=== PATIENT | male | born 1970 | race African-American/Black ===

== ENCOUNTER 2018-10-25 17:59 | Inpatient (IN) | payer MEDICARE, MEDICAID ==
[~2018-10-25] VITALS: Ht 180.3 cm; Wt 60.3 kg
[2018-10-25] MEDS ORDERED: MORPHINE SULFATE 4 MG/ML CPJ (NOT FOR IM USE) IV STA (22:47)
[2018-10-25 23:56] LABS: BASOPHILS % 0.3 % (0.0-2.0); EOSINOPHILS % 2.2 % (0.0-5.0); LYMPHOCYTES % 20.7 % (20.0-50.0); MEAN CORPUSCULAR HEMOGLOBIN 30.3 pg (28.0-32.0); MEAN CORPUSCULAR VOLUME 90.9 fL (80.0-94.0); MEAN PLATELET VOLUME 7.3 fl (7.4-10.4); MONOCYTES % 7.5 % (2.0-8.0); NEUTROPHILS % 69.3 % (40.0-76.0); PLATELET 404 x1000/uL (130-400); RED BLOOD CELL COUNT 3.96 mill/uL (4.7-6.1); RED CELL DISTRIBUTION WIDTH 17.9 % (11.6-14.6)
[2018-10-25 23:57] LABS: CHLORIDE 93 mEq/L (98-107)
[2018-10-26] MEDS ORDERED: CALCIUM CHLORIDE 1GM/10ML SYR IV ONE (00:45)
[2018-10-26] MEDS ORDERED: ALBUTEROL (0.083%) 2.5MG/3ML NEB HHN ONE (00:45)
[2018-10-26] MEDS ORDERED: SODIUM POLYSTYRENE SULFONATE 15 G/60 ML BOT PO ONE (00:45)
[2018-10-26] MEDS ORDERED: SODIUM BICARBONATE 8.4% 1 MEQ/ML 50ML SYR IV ONE (00:45)
[2018-10-26] MEDS ORDERED: MORPHINE SULFATE 4 MG/ML CPJ (NOT FOR IM USE) IV ONE (01:45)
[2018-10-26 09:00] VITALS: BP 144/89
[2018-10-26] MEDS ORDERED: ONDANSETRON HCL 4MG/2ML INJ IV PRN (09:00)
[2018-10-26] MEDS: ENOXAPARIN 30MG/0.3ML SYR SUBCUT SCH (09:30)
[2018-10-26] MEDS: MORPHINE SULFATE 4 MG/ML CPJ (NOT FOR IM USE) IV PRN (11:27)
[2018-10-26 12:05] VITALS: BP 116/55
[2018-10-26 16:12] VITALS: BP 122/84
[2018-10-26 17:39] LABS: BASOPHILS % 0.8 % (0.0-2.0); EOSINOPHILS % 2.7 % (0.0-5.0); HEMATOCRIT. 34.5 % (42.0-52.0); HEMOGLOBIN. 11.4 g/dL (14.0-18.0); LYMPHOCYTES % 18.1 % (20.0-50.0); MEAN CORPUSCULAR HEMOGLOBIN 30.3 pg (28.0-32.0); MEAN CORPUSCULAR VOLUME 91.3 fL (80.0-94.0); MONOCYTES % 7.6 % (2.0-8.0); NEUTROPHILS % 70.8 % (40.0-76.0); PLATELET 415 x1000/uL (130-400); RED BLOOD CELL COUNT 3.78 mill/uL (4.7-6.1); RED CELL DISTRIBUTION WIDTH 17.7 % (11.6-14.6)
[2018-10-26 17:51] LABS: PHOSPHORUS 7.8 mg/dL (2.5-4.9)
[2018-10-26 21:20] VITALS: BP 125/74
[2018-10-26] MEDS: SEVELAMER CARBONATE 800 MG TABLET PO SCH (21:45)
[2018-10-27] VITALS: BP 98/48
[2018-10-27 04:00] VITALS: BP 106/52
[2018-10-27 08:05] VITALS: BP 114/63
[2018-10-27] MEDS: ENOXAPARIN 30MG/0.3ML SYR SUBCUT SCH (09:00)
[2018-10-27] MEDS: SEVELAMER CARBONATE 800 MG TABLET PO SCH ×3 (09:02→17:56)
[2018-10-27] MEDS: FOLIC ACID/VITAMIN B COMP W-C TABLET PO SCH (09:02)
[2018-10-27 10:39] LABS: BASOPHILS % 0.9 % (0.0-2.0); EOSINOPHILS % 1.9 % (0.0-5.0); HEMATOCRIT. 34.4 % (42.0-52.0); HEMOGLOBIN. 11.4 g/dL (14.0-18.0); LYMPHOCYTES % 12.7 % (20.0-50.0); MEAN CORPUSCULAR HEMOGLOBIN 30.4 pg (28.0-32.0); MEAN CORPUSCULAR VOLUME 91.8 fL (80.0-94.0); MEAN PLATELET VOLUME 7.2 fl (7.4-10.4); MONOCYTES % 9.3 % (2.0-8.0); NEUTROPHILS % 75.2 % (40.0-76.0); PLATELET 355 x1000/uL (130-400); RED BLOOD CELL COUNT 3.75 mill/uL (4.7-6.1); RED CELL DISTRIBUTION WIDTH 17.5 % (11.6-14.6)
[2018-10-27] MEDS: MORPHINE SULFATE 4 MG/ML CPJ (NOT FOR IM USE) IV PRN (11:14)
[2018-10-27 12:03] VITALS: BP 116/61
[2018-10-27 12:06] LABS: PHOSPHORUS 6.9 mg/dL (2.5-4.9)
[2018-10-27 16:00] VITALS: BP 109/61
[2018-10-27] MEDS: ACETAMINOPHEN 325MG TABLET PO PRN (17:56)
[2018-10-27 20:00] VITALS: BP 114/66
[2018-10-27] MEDS: CEFTRIAXONE 1 G PREMIX 50 ML IV SCH (20:52)
[2018-10-28] VITALS: BP 114/63
[2018-10-28 04:00] VITALS: BP 103/68
[2018-10-28 07:51] LABS: BASOPHILS % 0.7 % (0.0-2.0); EOSINOPHILS % 2.3 % (0.0-5.0); HEMATOCRIT. 31.9 % (42.0-52.0); HEMOGLOBIN. 10.4 g/dL (14.0-18.0); LYMPHOCYTES % 17.9 % (20.0-50.0); MEAN CORPUSCULAR VOLUME 92.2 fL (80.0-94.0); MEAN PLATELET VOLUME 7.7 fl (7.4-10.4); MONOCYTES % 11.2 % (2.0-8.0); NEUTROPHILS % 67.9 % (40.0-76.0); PLATELET 325 x1000/uL (130-400); RED BLOOD CELL COUNT 3.45 mill/uL (4.7-6.1); RED CELL DISTRIBUTION WIDTH 17.7 % (11.6-14.6)
[2018-10-28 08:00] VITALS: BP 113/67
[2018-10-28] MEDS: SEVELAMER CARBONATE 800 MG TABLET PO SCH ×3 (08:26→19:15)
[2018-10-28] MEDS: FOLIC ACID/VITAMIN B COMP W-C TABLET PO SCH (08:26)
[2018-10-28] MEDS: HYDROCODONE/ACETAMINOPHEN 5/325MG TABLET PO PRN ×2 (08:27→13:20)
[2018-10-28] MEDS: ENOXAPARIN 30MG/0.3ML SYR SUBCUT SCH (09:00)
[2018-10-28 12:00] VITALS: BP 104/48
[2018-10-28 20:00] VITALS: BP 114/68
[2018-10-29] VITALS: BP 96/59
[2018-10-29] MEDS: CEFTRIAXONE 1 G PREMIX 50 ML IV SCH (00:52)
[2018-10-29] MEDS: ACETAMINOPHEN 325MG TABLET PO PRN (01:00)
[2018-10-29 04:00] VITALS: BP 92/50
[2018-10-29 07:47] VITALS: BP 95/63
[2018-10-29] MEDS: FOLIC ACID/VITAMIN B COMP W-C TABLET PO SCH (09:05)
[2018-10-29] MEDS: SEVELAMER CARBONATE 800 MG TABLET PO SCH (09:05)
[2018-10-29 12:42] VITALS: BP 126/79
[2018-10-29 12:45] VITALS: BP 126/79
== END 2018-10-29 13:10 | disposition home or self-care (01) | DRG 640 ==
LOC: ER 17:59 → 6WST 10-26 00:38 → EDBEDREQ 10-26 00:42 → EDBEDREQTM 10-26 00:42 → ENRESERV 10-26 07:06
PROVIDERS: ADMIT Internal Medicine; ATTEND Internal Medicine
PROC: 5A1D70Z Performance of Urinary Filtration, Intermittent, Less than 6 Hours Per Day (ICD-10-PCS; principal; 2018-10-26)
PROC: 5A1D70Z Performance of Urinary Filtration, Intermittent, Less than 6 Hours Per Day (ICD-10-PCS; 2018-10-28)
DX: E87.5 Hyperkalemia (principal); N18.6 End stage renal disease; I13.11 Hypertensive heart and chronic kidney disease without heart failure, with stage 5 chronic kidney disease, or end stage renal disease; E44.0 Moderate protein-calorie malnutrition; N25.81 Secondary hyperparathyroidism of renal origin; Z68.1 Body mass index [BMI] 19.9 or less, adult; N12 Tubulo-interstitial nephritis, not specified as acute or chronic; M19.012 Primary osteoarthritis, left shoulder; N13.9 Obstructive and reflux uropathy, unspecified; D63.8 Anemia in other chronic diseases classified elsewhere; M75.01 Adhesive capsulitis of right shoulder; E89.2 Postprocedural hypoparathyroidism; M85.861 Other specified disorders of bone density and structure, right lower leg; F17.210 Nicotine dependence, cigarettes, uncomplicated; F12.90 Cannabis use, unspecified, uncomplicated; M23.8X1 Other internal derangements of right knee; E87.8 Other disorders of electrolyte and fluid balance, not elsewhere classified; M19.011 Primary osteoarthritis, right shoulder; M1A.9XX1 Chronic gout, unspecified, with tophus (tophi); N25.0 Renal osteodystrophy; Z99.2 Dependence on renal dialysis; Z91.15 Patient's noncompliance with renal dialysis
CPT/HCPCS: 36415; 71045; 73030; 73560; 80048; 83880; 84100; 84484; 93005; 93306; 94644; 96374; 96375; 97161; 97166; 99285; J0696; J1650; J2270; J3490; J7611

== ENCOUNTER 2021-10-18 15:15 | Inpatient (IN) | payer MEDICARE, MEDICAID ==
[~2021-10-18] VITALS: Ht 177.8 cm; Wt 55.4 kg
[~2021-10-18 15:15] MED LIST: CINA60 PO; DOXE2.5C4 PO; LEVO750T46 PO; NEPVIT PO; SEVE800T8 PO
[2021-10-18] MEDS ORDERED: ACETAMINOPHEN 325MG TABLET PO STA (15:35)
[2021-10-18] MEDS ORDERED: SODIUM CHLORIDE 0.9% 500 ML IV ONE (15:45)
[2021-10-18 16:32] LABS: BASOPHILS % 0.7 % (0.0-2.0); EOSINOPHILS % 0.1 % (0.0-5.0); HEMATOCRIT. 43.2 % (42.0-52.0); HEMOGLOBIN. 14.1 g/dL (14.0-18.0); LYMPHOCYTES % 8.2 % (20.0-50.0); MEAN CORPUSCULAR HEMOGLOBIN 29.9 pg (28.0-32.0); MEAN CORPUSCULAR VOLUME 91.4 fL (80.0-94.0); MEAN PLATELET VOLUME 8.8 fl (7.4-10.4); MONOCYTES % 4.7 % (2.0-8.0); NEUTROPHILS % 86.3 % (40.0-76.0); PLATELET 117 x1000/uL (130-400); RED BLOOD CELL COUNT 4.73 mill/uL (4.7-6.1); RED CELL DISTRIBUTION WIDTH 15.2 % (11.6-14.6)
[2021-10-18 16:35] LABS: CHLORIDE 82 mEq/L (98-107)
[2021-10-18 16:39] LABS: INR 1.1; PROTHROMBIN TIME 11.8 sec (9.6-11.0)
[2021-10-18] MEDS ORDERED: MORPHINE SULFATE 4 MG/ML CPJ (NOT FOR IM USE) IV ONE ×2 (17:30→19:00)
[2021-10-18] MEDS ORDERED: PIPERACILLIN/TAZOBACTAM 3.375GM/50ML PREMIX IV STA (19:01)
[2021-10-18] MEDS ORDERED: VANCOMYCIN 1G PREMIX 200 ML IV STA (19:01)
[2021-10-18] MEDS ORDERED: PIPERACILLIN/TAZ 3.375G PREMIX 50 ML IV NR (19:15)
[2021-10-18] MEDS ORDERED: DEXTROSE 50% WATER 50ML SYRINGE IV ONE (20:30)
[2021-10-18] MEDS ORDERED: INSULIN REGULAR (HUMULIN R) 300UNITS/3ML VIAL IV ONE (20:30)
[2021-10-18] MEDS ORDERED: CALCIUM CHLORIDE 1GM/10ML SYR IV ONE (20:30)
[2021-10-18] MEDS ORDERED: ALBUTEROL (0.083%) 2.5MG/3ML NEB HHN ONE (20:30)
[2021-10-18] MEDS ORDERED: DEXTROSE 50% WATER 50ML SYRINGE IV NR (22:15)
[2021-10-18] MEDS ORDERED: CALCIUM CHLORIDE 1GM/10ML SYR IV NR (22:15)
[2021-10-18 22:55] VITALS: BP 101/68
[2021-10-19] MEDS ORDERED: NALOXONE HCL 0.4MG/ML VIAL IV PRN (03:00)
[2021-10-19] MEDS ORDERED: SODIUM POLYSTYRENE SULFONATE 15 G/60 ML BOT PO NR (03:00)
[2021-10-19] MEDS: HYDROCODONE/ACETAMINOPHEN 5/325MG TABLET PO PRN ×3 (03:36→18:38)
[2021-10-19 03:55] VITALS: BP 103/65
[2021-10-19 04:55] LABS: HEPATITIS B SURFACE ANTIGEN NEGATIVE
[2021-10-19] MEDS ORDERED: DEXTROSE 50% WATER 50ML SYRINGE IV ONE (07:03)
[2021-10-19] MEDS ORDERED: DEXTROSE 50% WATER 50ML SYRINGE IV PRN (07:15)
[2021-10-19 08:00] VITALS: BP 92/52
[2021-10-19] MEDS ORDERED: PIPERACILLIN/TAZOBACTAM 3.375 G in DEXTROSE 5% WATER 50 ML IV SCH ×2 (09:00→13:00)
[2021-10-19] MEDS: ALBUTEROL (0.083%) 2.5MG/3ML NEB HHN SCH ×4 (09:02→20:15)
[2021-10-19 11:05] LABS: BASOPHILS % 0.8 % (0.0-2.0); EOSINOPHILS % 0.3 % (0.0-5.0); HEMOGLOBIN. 14.1 g/dL (14.0-18.0); LYMPHOCYTES % 8.1 % (20.0-50.0); MEAN CORPUSCULAR VOLUME 91.7 fL (80.0-94.0); MEAN PLATELET VOLUME 10.1 fl (7.4-10.4); MONOCYTES % 7.8 % (2.0-8.0); PLATELET 131 x1000/uL (130-400); RED BLOOD CELL COUNT 4.69 mill/uL (4.7-6.1); RED CELL DISTRIBUTION WIDTH 15.4 % (11.6-14.6)
[2021-10-19 12:00] VITALS: BP 108/70
[2021-10-19] MEDS: SEVELAMER CARBONATE 800 MG TABLET PO SCH ×2 (12:40→18:38)
[2021-10-19 18:35] VITALS: BP 106/66
[2021-10-19 20:00] VITALS: BP 107/58
[2021-10-19] MEDS: PIPERACILLIN/TAZOBACTAM 3.375 G in DEXTROSE 5% WATER 50 ML IV SCH (21:00)
[2021-10-20] VITALS: BP 101/64
[2021-10-20] MEDS: HYDROCODONE/ACETAMINOPHEN 5/325MG TABLET PO PRN (01:46)
[2021-10-20] MEDS ORDERED: SODIUM POLYSTYRENE SULFONATE 15 G/60 ML BOT PO ONE ×2 (03:00)
[2021-10-20] MEDS: SODIUM POLYSTYRENE SULFONATE 15 G/60 ML BOT PO NR ×2 (03:30→03:32)
[2021-10-20 04:00] VITALS: BP 94/51
[2021-10-20] MEDS: ALBUTEROL (0.083%) 2.5MG/3ML NEB HHN SCH ×3 (04:40→08:18)
[2021-10-20 06:32] LABS: PHOSPHORUS 7.6 mg/dL (2.5-4.9)
[2021-10-20 06:33] LABS: BASOPHILS % 0.5 % (0.0-2.0); EOSINOPHILS % 0.4 % (0.0-5.0); HEMOGLOBIN. 12.8 g/dL (14.0-18.0); MEAN CORPUSCULAR VOLUME 91.3 fL (80.0-94.0); MEAN PLATELET VOLUME 9.9 fl (7.4-10.4); NEUTROPHILS % 70.1 % (40.0-76.0); PLATELET 119 x1000/uL (130-400); RED BLOOD CELL COUNT 4.27 mill/uL (4.7-6.1); RED CELL DISTRIBUTION WIDTH 15.7 % (11.6-14.6)
[2021-10-20] MEDS: SEVELAMER CARBONATE 800 MG TABLET PO SCH ×4 (07:40→18:00)
[2021-10-20] MEDS ORDERED: LIDOCAINE HCL/PF 1% 10 MG/ML 5ML VIAL ONE (07:59)
[2021-10-20 08:00] VITALS: BP 105/57
[2021-10-20] MEDS ORDERED: ALBUTEROL (0.083%) 2.5MG/3ML NEB HHN PRN (08:45)
[2021-10-20] MEDS: CALCITRIOL 0.25MCG CAPSULE PO SCH (09:33)
[2021-10-20] MEDS: PIPERACILLIN/TAZOBACTAM 3.375 G in DEXTROSE 5% WATER 50 ML IV SCH ×2 (09:35→22:24)
[2021-10-20] MEDS: MORPHINE SULFATE 2 MG/ML CPJ (NOT FOR IM USE) IV PRN (09:37)
[2021-10-20 12:00] VITALS: BP 128/61
[2021-10-20 16:00] VITALS: BP 87/45
[2021-10-20 20:00] VITALS: BP 108/60
[2021-10-20] MEDS ORDERED: VANCOMYCIN 750MG PREMIX 150 ML IV NR (21:00)
[2021-10-21 00:01] VITALS: BP 108/76
[2021-10-21 04:22] VITALS: BP 102/70
[2021-10-21] MEDS: HYDROCODONE/ACETAMINOPHEN 5/325MG TABLET PO PRN (04:33)
[2021-10-21 06:12] LABS: HIV SCREEN 4G Non Reactive (Non Reactive)
[2021-10-21 06:35] LABS: BASOPHILS % 0.3 % (0.0-2.0); EOSINOPHILS % 0.1 % (0.0-5.0); HEMATOCRIT. 35.5 % (42.0-52.0); HEMOGLOBIN. 11.6 g/dL (14.0-18.0); LYMPHOCYTES % 11.5 % (20.0-50.0); MEAN CORPUSCULAR HEMOGLOBIN 29.9 pg (28.0-32.0); MEAN CORPUSCULAR VOLUME 91.3 fL (80.0-94.0); MEAN PLATELET VOLUME 9.5 fl (7.4-10.4); MONOCYTES % 13.2 % (2.0-8.0); NEUTROPHILS % 74.9 % (40.0-76.0); PLATELET 114 x1000/uL (130-400); RED BLOOD CELL COUNT 3.89 mill/uL (4.7-6.1); RED CELL DISTRIBUTION WIDTH 15.4 % (11.6-14.6)
[2021-10-21 08:00] VITALS: BP 100/56
[2021-10-21] MEDS: SEVELAMER CARBONATE 800 MG TABLET PO SCH ×3 (08:24→18:26)
[2021-10-21] MEDS: PIPERACILLIN/TAZOBACTAM 3.375 G in DEXTROSE 5% WATER 50 ML IV SCH (08:25)
[2021-10-21] MEDS: CALCITRIOL 0.25MCG CAPSULE PO SCH (08:25)
[2021-10-21 12:00] VITALS: BP 114/77
[2021-10-21] MEDS: MORPHINE SULFATE 2 MG/ML CPJ (NOT FOR IM USE) IV PRN ×2 (13:03→18:38)
[2021-10-21 16:00] VITALS: BP 122/66
[2021-10-21] MEDS: CEFEPIME 1,000 MG in DEXTROSE 5% WATER 50 ML IV SCH (18:26)
[2021-10-21 20:00] VITALS: BP 120/68
[2021-10-22] VITALS: BP 141/93
[2021-10-22 08:00] VITALS: BP 128/84
[2021-10-22 11:54] LABS: BASOPHILS % 0.4 % (0.0-2.0); EOSINOPHILS % 0.7 % (0.0-5.0); HEMATOCRIT. 34.8 % (42.0-52.0); HEMOGLOBIN. 11.5 g/dL (14.0-18.0); LYMPHOCYTES % 15.3 % (20.0-50.0); MEAN CORPUSCULAR HEMOGLOBIN 30.1 pg (28.0-32.0); MEAN PLATELET VOLUME 9.7 fl (7.4-10.4); MONOCYTES % 12.5 % (2.0-8.0); NEUTROPHILS % 71.1 % (40.0-76.0); PLATELET 130 x1000/uL (130-400); RED BLOOD CELL COUNT 3.82 mill/uL (4.7-6.1); RED CELL DISTRIBUTION WIDTH 15.8 % (11.6-14.6)
[2021-10-22 12:00] VITALS: BP 118/70
[2021-10-22] MEDS ORDERED: LIDOCAINE HCL/PF 1% 10 MG/ML 5ML VIAL ONE (13:42)
[2021-10-22] MEDS ORDERED: SODIUM BICARBONATE 4% (2.4MEQ) 5ML VIAL IV ONE (13:42)
[2021-10-22 16:00] VITALS: BP 120/69
[2021-10-22] MEDS: CEFEPIME 1,000 MG in DEXTROSE 5% WATER 50 ML IV SCH (19:19)
[2021-10-22 20:00] VITALS: BP 102/63
[2021-10-23] VITALS: BP 112/65
[2021-10-23 04:00] VITALS: BP 115/66
[2021-10-23 06:04] LABS: BASOPHILS % 0.3 % (0.0-2.0); EOSINOPHILS % 0.8 % (0.0-5.0); HEMATOCRIT. 35.6 % (42.0-52.0); HEMOGLOBIN. 11.8 g/dL (14.0-18.0); LYMPHOCYTES % 10.5 % (20.0-50.0); MEAN CORPUSCULAR HEMOGLOBIN 30.1 pg (28.0-32.0); MEAN CORPUSCULAR VOLUME 90.7 fL (80.0-94.0); MEAN PLATELET VOLUME 9.5 fl (7.4-10.4); NEUTROPHILS % 75.4 % (40.0-76.0); PLATELET 152 x1000/uL (130-400); RED BLOOD CELL COUNT 3.93 mill/uL (4.7-6.1); RED CELL DISTRIBUTION WIDTH 16.1 % (11.6-14.6)
[2021-10-23] MEDS: SEVELAMER CARBONATE 800 MG TABLET PO SCH ×4 (07:40→17:42)
[2021-10-23 08:00] VITALS: BP 122/67
[2021-10-23] MEDS: CALCITRIOL 0.25MCG CAPSULE PO SCH (09:00)
[2021-10-23 12:00] VITALS: BP 112/67
[2021-10-23] MEDS ORDERED: ACETAMINOPHEN 325MG TABLET PO PRN (12:15)
[2021-10-23 16:00] VITALS: BP 108/62
[2021-10-23] MEDS ORDERED: VANCOMYCIN 500MG PREMIX 100 ML IV NR (16:00)
[2021-10-23] MEDS: CEFEPIME 1,000 MG in DEXTROSE 5% WATER 50 ML IV SCH (17:42)
[2021-10-23 20:00] VITALS: BP 119/56
[2021-10-24] VITALS: BP 128/67
[2021-10-24 04:00] VITALS: BP 114/80
[2021-10-24 08:00] VITALS: BP 118/76
[2021-10-24 08:28] LABS: BASOPHILS % 0.5 % (0.0-2.0); EOSINOPHILS % 2.1 % (0.0-5.0); HEMOGLOBIN. 11.6 g/dL (14.0-18.0); LYMPHOCYTES % 14.3 % (20.0-50.0); MEAN CORPUSCULAR HEMOGLOBIN 29.7 pg (28.0-32.0); MEAN CORPUSCULAR VOLUME 90.1 fL (80.0-94.0); MEAN PLATELET VOLUME 9.3 fl (7.4-10.4); MONOCYTES % 12.3 % (2.0-8.0); NEUTROPHILS % 70.8 % (40.0-76.0); PLATELET 183 x1000/uL (130-400); RED BLOOD CELL COUNT 3.89 mill/uL (4.7-6.1); RED CELL DISTRIBUTION WIDTH 15.8 % (11.6-14.6)
[2021-10-24] MEDS: SEVELAMER CARBONATE 800 MG TABLET PO SCH ×3 (09:33→17:46)
[2021-10-24] MEDS: CALCITRIOL 0.25MCG CAPSULE PO SCH (09:34)
[2021-10-24] MEDS: MORPHINE SULFATE 2 MG/ML CPJ (NOT FOR IM USE) IV PRN (09:42)
[2021-10-24 12:00] VITALS: BP 125/74
[2021-10-24 16:00] VITALS: BP 111/78
[2021-10-24] MEDS: CEFEPIME 1,000 MG in DEXTROSE 5% WATER 50 ML IV SCH (17:45)
[2021-10-24 20:00] VITALS: BP 109/73
[2021-10-25] VITALS: BP 111/69
[2021-10-25 04:00] VITALS: BP 116/79
[2021-10-25 06:14] LABS: BASOPHILS % 0.5 % (0.0-2.0); EOSINOPHILS % 2.6 % (0.0-5.0); HEMATOCRIT. 35.6 % (42.0-52.0); MEAN CORPUSCULAR HEMOGLOBIN 29.9 pg (28.0-32.0); MEAN CORPUSCULAR VOLUME 88.7 fL (80.0-94.0); MEAN PLATELET VOLUME 9.3 fl (7.4-10.4); NEUTROPHILS % 71.9 % (40.0-76.0); PLATELET 177 x1000/uL (130-400); RED BLOOD CELL COUNT 4.02 mill/uL (4.7-6.1); RED CELL DISTRIBUTION WIDTH 15.6 % (11.6-14.6)
[2021-10-25] MEDS ORDERED: SODIUM POLYSTYRENE SULFONATE 15 G/60 ML BOT PO NR (07:30)
[2021-10-25] MEDS: SEVELAMER CARBONATE 800 MG TABLET PO SCH ×4 (07:40→17:50)
[2021-10-25 08:00] VITALS: BP 126/85
[2021-10-25] MEDS: CALCITRIOL 0.25MCG CAPSULE PO SCH (09:09)
[2021-10-25 12:00] VITALS: BP 126/89
[2021-10-25 16:00] VITALS: BP 106/71
[2021-10-25] MEDS: CEFEPIME 1,000 MG in DEXTROSE 5% WATER 50 ML IV SCH (17:49)
[2021-10-25] MEDS ORDERED: NALOXONE HCL 0.4MG/ML VIAL IV PRN (18:00)
[2021-10-25] MEDS: HYDROCODONE/ACETAMINOPHEN 5/325MG TABLET PO PRN (18:05)
[2021-10-25 20:00] VITALS: BP 104/77
[2021-10-26] VITALS: BP 109/71
[2021-10-26 04:00] VITALS: BP 107/74
[2021-10-26 08:00] VITALS: BP 113/83
[2021-10-26] MEDS: SEVELAMER CARBONATE 800 MG TABLET PO SCH ×2 (10:11→11:56)
[2021-10-26] MEDS: CALCITRIOL 0.25MCG CAPSULE PO SCH (10:11)
[2021-10-26] MEDS: HYDROCODONE/ACETAMINOPHEN 5/325MG TABLET PO PRN ×2 (10:13→15:40)
[2021-10-26 12:00] VITALS: BP 117/78
[2021-10-26] MEDS ORDERED: VANCOMYCIN 500MG PREMIX 100 ML IV NR (14:00)
[2021-10-26 15:31] VITALS: BP 114/71
[2021-10-26 16:00] VITALS: BP 114/71
== END 2021-10-26 17:30 | disposition home or self-care (01) | DRG 871 ==
LOC: ER 15:15 → 8WST 19:05 → ENRESERV 21:04 → 8WST 10-24 14:50
PROVIDERS: ADMIT Internal Medicine; ATTEND Internal Medicine
PROC: 5A1D70Z Performance of Urinary Filtration, Intermittent, Less than 6 Hours Per Day (ICD-10-PCS; 2021-10-19)
PROC: 5A1D70Z Performance of Urinary Filtration, Intermittent, Less than 6 Hours Per Day (ICD-10-PCS; 2021-10-20)
PROC: 0S9C3ZZ Drainage of Right Knee Joint, Percutaneous Approach (ICD-10-PCS; principal; 2021-10-22)
PROC: 0S9D3ZZ Drainage of Left Knee Joint, Percutaneous Approach (ICD-10-PCS; 2021-10-22)
PROC: 5A1D70Z Performance of Urinary Filtration, Intermittent, Less than 6 Hours Per Day (ICD-10-PCS; 2021-10-22)
PROC: 5A1D70Z Performance of Urinary Filtration, Intermittent, Less than 6 Hours Per Day (ICD-10-PCS; 2021-10-24)
PROC: 5A1D70Z Performance of Urinary Filtration, Intermittent, Less than 6 Hours Per Day (ICD-10-PCS; 2021-10-26)
DX: A41.9 Sepsis, unspecified organism (principal); N18.6 End stage renal disease; E87.1 Hypo-osmolality and hyponatremia; I12.0 Hypertensive chronic kidney disease with stage 5 chronic kidney disease or end stage renal disease; N25.81 Secondary hyperparathyroidism of renal origin; R64 Cachexia; E87.2 Acidosis; Z68.1 Body mass index [BMI] 19.9 or less, adult; D64.9 Anemia, unspecified; E16.2 Hypoglycemia, unspecified; E83.39 Other disorders of phosphorus metabolism; E86.0 Dehydration; E87.5 Hyperkalemia; G89.29 Other chronic pain; K76.0 Fatty (change of) liver, not elsewhere classified; K83.8 Other specified diseases of biliary tract; K21.9 Gastro-esophageal reflux disease without esophagitis; M13.862 Other specified arthritis, left knee; M13.861 Other specified arthritis, right knee; M25.462 Effusion, left knee; R65.20 Severe sepsis without septic shock; D69.6 Thrombocytopenia, unspecified; M25.461 Effusion, right knee; Z20.822 Contact with and (suspected) exposure to COVID-19; M1A.9XX1 Chronic gout, unspecified, with tophus (tophi); N25.0 Renal osteodystrophy; Z91.15 Patient's noncompliance with renal dialysis; Z99.2 Dependence on renal dialysis; Z79.899 Other long term (current) drug therapy; Z91.19 Patient's noncompliance with other medical treatment and regimen; I95.9 Hypotension, unspecified; R19.7 Diarrhea, unspecified; Z87.39 Personal history of other diseases of the musculoskeletal system and connective tissue
CPT/HCPCS: 20610; 20611; 36415; 71045; 73562; 76700; 80048; 80053; 80202; 82962; 83605; 83735; 83970; 84100; 84132; 84145; 84484; 85025; 86705; 86709; 86803; 86850; 86900; 87340; 87389; 87426; 89060; 93005; 94640; 99291; C9803; J0692; J2270; J2543; J3370; J3490; J7030; J7060

== ENCOUNTER 2021-10-28 13:40 | Inpatient (IN) | payer MEDICARE, MEDICAID ==
[~2021-10-28] VITALS: Ht 152.4 cm; Wt 68.0 kg
[~2021-10-28 13:40] MED LIST changes: -LEVO750T46 PO
[2021-10-28] MEDS ORDERED: MORPHINE SULFATE 4 MG/ML CPJ (NOT FOR IM USE) IV STA (14:42)
[2021-10-28] MEDS ORDERED: SODIUM CHLORIDE 0.9% 500 ML IV ONE (14:45)
[2021-10-28 17:14] LABS: BASOPHILS % 0.8 % (0.0-2.0); EOSINOPHILS % 1.9 % (0.0-5.0); HEMATOCRIT. 32.8 % (42.0-52.0); HEMOGLOBIN. 10.9 g/dL (14.0-18.0); LYMPHOCYTES % 13.8 % (20.0-50.0); MEAN CORPUSCULAR HEMOGLOBIN 29.6 pg (28.0-32.0); MEAN CORPUSCULAR VOLUME 88.8 fL (80.0-94.0); MEAN PLATELET VOLUME 9.2 fl (7.4-10.4); MONOCYTES % 10.1 % (2.0-8.0); NEUTROPHILS % 73.4 % (40.0-76.0); PLATELET 254 x1000/uL (130-400); RED BLOOD CELL COUNT 3.69 mill/uL (4.7-6.1); RED CELL DISTRIBUTION WIDTH 15.7 % (11.6-14.6)
[2021-10-28 17:20] LABS: INR 1.1
[2021-10-28 17:22] LABS: CHLORIDE 95 mEq/L (98-107)
[2021-10-28] MEDS ORDERED: NITROGLYCERIN 0.4MG TABLET SL SL PRN (20:15)
[2021-10-28] MEDS ORDERED: ZOLPIDEM TARTRATE 5MG TABLET PO PRN (20:15)
[2021-10-28] MEDS ORDERED: ACETAMINOPHEN 325MG TABLET PO PRN (20:15)
[2021-10-28] MEDS ORDERED: MAGNESIUM/ALUMINUM HYDROXIDE/SIMETHICONE 30ML UDC PO PRN (20:15)
[2021-10-28] MEDS ORDERED: ALBUTEROL 6.7GM HFA INHALER ORI PRN (20:15)
[2021-10-28] MEDS ORDERED: CLONIDINE 0.1MG TABLET PO PRN (20:15)
[2021-10-28] MEDS ORDERED: ONDANSETRON HCL 4MG/2ML INJ IV PRN (20:15)
[2021-10-28] MEDS ORDERED: DIPHENHYDRAMINE 50MG/ML VIAL IV PRN (20:15)
[2021-10-28] MEDS ORDERED: CEFTRIAXONE 1 G PREMIX 50 ML IV SCH (20:30)
[2021-10-28 20:46] LABS: T4 FREE 0.99 ng/dL (0.76-1.46)
[2021-10-28] MEDS ORDERED: AZITHROMYCIN 500 MG in DEXT 5% WATER 250 ML IV SCH (21:00)
[2021-10-28 21:01] LABS: FOLIC ACID (FOLATE) SERUM 4.3 ng/mL (>5.38)
[2021-10-28] MEDS: GUAIFENESIN/DM 600MG/30MG ER TAB 12HR PO SCH (21:13)
[2021-10-28] MEDS: ASCORBIC ACID 500 MG TABLET PO SCH (21:14)
[2021-10-28] MEDS: ENOXAPARIN 30MG/0.3ML SYR SUBCUT SCH (21:14)
[2021-10-28] MEDS ORDERED: AZITHROMYCIN 500MG/250ML 250 ML IV NR (21:30)
[2021-10-28] MEDS ORDERED: SODIUM POLYSTYRENE SULFONATE 15 G/60 ML BOT PO NR (23:17)
[2021-10-29 00:53] LABS: CREATINE KINASE 87 IU/L (39-308)
[2021-10-29 01:02] LABS: HEPATITIS B SURFACE ANTIGEN NEGATIVE
[2021-10-29] MEDS: DEXAMETHASONE 4MG TABLET PO SCH ×2 (02:00→09:54)
[2021-10-29] MEDS: ACETAMINOPHEN 325MG TABLET PO PRN ×4 (02:07→21:17)
[2021-10-29 05:58] VITALS: BP 119/80
[2021-10-29 06:00] VITALS: BP 119/80
[2021-10-29 08:00] VITALS: BP 105/63
[2021-10-29] MEDS: SEVELAMER CARBONATE 800 MG TABLET PO SCH ×3 (08:10→17:54)
[2021-10-29] MEDS: GUAIFENESIN/DM 600MG/30MG ER TAB 12HR PO SCH ×2 (08:15→21:16)
[2021-10-29] MEDS: ALBUTEROL 6.7GM HFA INHALER ORI SCH ×3 (09:00→21:00)
[2021-10-29] MEDS: ZINC SULFATE 220 MG ( 50 ) CAPSULE PO SCH (09:54)
[2021-10-29] MEDS: CHOLECALCIFEROL (D3) 1000 UNIT TABLET PO SCH (09:54)
[2021-10-29] MEDS: FAMOTIDINE 20MG TABLET PO SCH (09:54)
[2021-10-29] MEDS: ASPIRIN 325MG EC TABLET PO SCH (09:54)
[2021-10-29] MEDS: ASCORBIC ACID 500 MG TABLET PO SCH ×2 (09:54→21:17)
[2021-10-29 11:37] LABS: HEMOGLOBIN. 11.6 g/dL (14.0-18.0); MEAN CORPUSCULAR HEMOGLOBIN 29.2 pg (28.0-32.0); MEAN CORPUSCULAR VOLUME 88.2 fL (80.0-94.0); MEAN PLATELET VOLUME 9.6 fl (7.4-10.4); PLATELET 320 x1000/uL (130-400); RED BLOOD CELL COUNT 3.97 mill/uL (4.7-6.1)
[2021-10-29 11:40] LABS: CHLORIDE 96 mEq/L (98-107)
[2021-10-29 11:45] LABS: PHOSPHORUS 7.8 mg/dL (2.5-4.9)
[2021-10-29 11:50] LABS: CREATINE KINASE 41 IU/L (39-308); CREATINE KINASE MB FRACTION 1.5 ng/mL (0.5-3.6)
[2021-10-29 12:00] VITALS: BP 124/68
[2021-10-29 14:00] LABS: PLATELET ESTIMATE NORMAL
[2021-10-29] MEDS ORDERED: CEFTRIAXONE 1,000 MG in DEXTROSE 5% WATER 50 ML IV SCH (14:00)
[2021-10-29 16:00] VITALS: BP 118/84
[2021-10-29] MEDS ORDERED: VANCOMYCIN 1GM PMX (XELLIA) 200 ML IV NR (17:00)
[2021-10-29] MEDS: DOXYCYCLINE HYCLATE 100MG CAPSULE PO SCH (17:54)
[2021-10-29] MEDS: CEFEPIME 1,000 MG in DEXTROSE 5% WATER 50 ML IV SCH (17:55)
[2021-10-29] MEDS ORDERED: AZITHROMYCIN 500 MG in DEXT 5% WATER 250 ML IV SCH (18:00)
[2021-10-29 20:00] VITALS: BP 119/61
[2021-10-29] MEDS: ENOXAPARIN 30MG/0.3ML SYR SUBCUT SCH (21:20)
[2021-10-30] VITALS: BP 106/60
[2021-10-30] MEDS: ALBUTEROL 6.7GM HFA INHALER ORI SCH ×4 (03:00→21:00)
[2021-10-30 04:00] VITALS: BP 114/68
[2021-10-30 08:00] VITALS: BP 128/65
[2021-10-30] MEDS: GUAIFENESIN/DM 600MG/30MG ER TAB 12HR PO SCH ×2 (08:15→20:15)
[2021-10-30] MEDS: SEVELAMER CARBONATE 800 MG TABLET PO SCH ×3 (08:42→16:51)
[2021-10-30] MEDS: ASCORBIC ACID 500 MG TABLET PO SCH ×2 (08:43→21:00)
[2021-10-30] MEDS: ASPIRIN 325MG EC TABLET PO SCH ×2 (08:43→08:54)
[2021-10-30] MEDS: FAMOTIDINE 20MG TABLET PO SCH ×2 (08:43→08:54)
[2021-10-30] MEDS: DEXAMETHASONE 4MG TABLET PO SCH ×2 (08:43→08:54)
[2021-10-30] MEDS: CHOLECALCIFEROL (D3) 1000 UNIT TABLET PO SCH ×2 (08:43→08:54)
[2021-10-30] MEDS: ZINC SULFATE 220 MG ( 50 ) CAPSULE PO SCH ×2 (08:43→08:54)
[2021-10-30] MEDS: DOXYCYCLINE HYCLATE 100MG CAPSULE PO SCH (08:52)
[2021-10-30 12:00] VITALS: BP 138/71
[2021-10-30 16:00] VITALS: BP 137/69
[2021-10-30] MEDS: ACETAMINOPHEN 325MG TABLET PO PRN ×2 (18:38→22:23)
[2021-10-30] MEDS: CEFEPIME 1,000 MG in DEXTROSE 5% WATER 50 ML IV SCH (18:39)
[2021-10-30 20:00] VITALS: BP 113/79
[2021-10-30] MEDS: ENOXAPARIN 30MG/0.3ML SYR SUBCUT SCH (21:00)
[2021-10-31] VITALS: BP 116/72
[2021-10-31] MEDS: ALBUTEROL 6.7GM HFA INHALER ORI SCH ×4 (02:02→21:00)
[2021-10-31 04:00] VITALS: BP 118/76
[2021-10-31 08:00] VITALS: BP 126/80
[2021-10-31] MEDS: GUAIFENESIN/DM 600MG/30MG ER TAB 12HR PO SCH ×2 (08:03→20:15)
[2021-10-31] MEDS: DEXAMETHASONE 4MG TABLET PO SCH (08:03)
[2021-10-31] MEDS: CHOLECALCIFEROL (D3) 1000 UNIT TABLET PO SCH (08:04)
[2021-10-31] MEDS: ASPIRIN 325MG EC TABLET PO SCH (08:04)
[2021-10-31] MEDS: ASCORBIC ACID 500 MG TABLET PO SCH ×2 (08:04→21:00)
[2021-10-31] MEDS: FAMOTIDINE 20MG TABLET PO SCH (08:04)
[2021-10-31] MEDS: ZINC SULFATE 220 MG ( 50 ) CAPSULE PO SCH (08:04)
[2021-10-31 08:19] LABS: BASOPHILS % 0.9 % (0.0-2.0); EOSINOPHILS % 1.7 % (0.0-5.0); HEMATOCRIT. 29.9 % (42.0-52.0); HEMOGLOBIN. 9.8 g/dL (14.0-18.0); LYMPHOCYTES % 19.1 % (20.0-50.0); MEAN CORPUSCULAR HEMOGLOBIN 29.5 pg (28.0-32.0); MEAN CORPUSCULAR VOLUME 90.4 fL (80.0-94.0); MONOCYTES % 9.6 % (2.0-8.0); NEUTROPHILS % 68.7 % (40.0-76.0); PLATELET 337 x1000/uL (130-400); RED BLOOD CELL COUNT 3.31 mill/uL (4.7-6.1); RED CELL DISTRIBUTION WIDTH 15.8 % (11.6-14.6)
[2021-10-31] MEDS: DOXYCYCLINE HYCLATE 100MG CAPSULE PO SCH ×2 (08:19→18:13)
[2021-10-31] MEDS: ACETAMINOPHEN 325MG TABLET PO PRN (08:19)
[2021-10-31] MEDS: SEVELAMER CARBONATE 800 MG TABLET PO SCH ×3 (08:19→18:12)
[2021-10-31 12:00] VITALS: BP 129/80
[2021-10-31 16:00] VITALS: BP 121/86
[2021-10-31] MEDS: CEFEPIME 1,000 MG in DEXTROSE 5% WATER 50 ML IV SCH (18:13)
[2021-10-31 20:00] VITALS: BP 105/74
[2021-10-31] MEDS: ENOXAPARIN 30MG/0.3ML SYR SUBCUT SCH (21:00)
[2021-11-01] VITALS: BP 92/60
[2021-11-01] MEDS: ALBUTEROL 6.7GM HFA INHALER ORI SCH ×4 (03:00→20:10)
[2021-11-01] MEDS: GUAIFENESIN/DM 600MG/30MG ER TAB 12HR PO SCH ×2 (07:56→20:10)
[2021-11-01] MEDS: ZINC SULFATE 220 MG ( 50 ) CAPSULE PO SCH (08:01)
[2021-11-01] MEDS: CHOLECALCIFEROL (D3) 1000 UNIT TABLET PO SCH (08:01)
[2021-11-01] MEDS: DEXAMETHASONE 4MG TABLET PO SCH (08:01)
[2021-11-01] MEDS: ASPIRIN 325MG EC TABLET PO SCH (08:01)
[2021-11-01] MEDS: ASCORBIC ACID 500 MG TABLET PO SCH ×2 (08:01→20:10)
[2021-11-01] MEDS: FAMOTIDINE 20MG TABLET PO SCH (08:01)
[2021-11-01] MEDS: DOXYCYCLINE HYCLATE 100MG CAPSULE PO SCH ×2 (08:03→17:43)
[2021-11-01] MEDS: SEVELAMER CARBONATE 800 MG TABLET PO SCH ×3 (08:03→17:44)
[2021-11-01] MEDS: ACETAMINOPHEN 325MG TABLET PO PRN ×3 (08:56→22:17)
[2021-11-01 12:00] VITALS: BP 114/79
[2021-11-01 13:27] VITALS: BP 118/83
[2021-11-01 16:00] VITALS: BP 119/61
[2021-11-01] MEDS: CEFEPIME 1,000 MG in DEXTROSE 5% WATER 50 ML IV SCH (17:43)
[2021-11-01 20:00] VITALS: BP 109/66
[2021-11-01] MEDS: ENOXAPARIN 30MG/0.3ML SYR SUBCUT SCH (20:10)
[2021-11-02] VITALS: BP 111/72
[2021-11-02] MEDS: ALBUTEROL 6.7GM HFA INHALER ORI SCH ×4 (03:00→20:37)
[2021-11-02 04:00] VITALS: BP 109/77
[2021-11-02] MEDS: ACETAMINOPHEN 325MG TABLET PO PRN ×2 (05:31→13:03)
[2021-11-02 08:00] VITALS: BP 126/82
[2021-11-02 08:02] LABS: PHOSPHORUS 5.2 mg/dL (2.5-4.9)
[2021-11-02 08:10] LABS: EOSINOPHILS % 1.4 % (0.0-5.0); HEMATOCRIT. 26.7 % (42.0-52.0); HEMOGLOBIN. 8.8 g/dL (14.0-18.0); MEAN CORPUSCULAR HEMOGLOBIN 29.5 pg (28.0-32.0); MEAN CORPUSCULAR VOLUME 89.2 fL (80.0-94.0); MEAN PLATELET VOLUME 8.5 fl (7.4-10.4); MONOCYTES % 8.9 % (2.0-8.0); NEUTROPHILS % 74.7 % (40.0-76.0); PLATELET 329 x1000/uL (130-400); RED CELL DISTRIBUTION WIDTH 15.6 % (11.6-14.6)
[2021-11-02] MEDS: GUAIFENESIN/DM 600MG/30MG ER TAB 12HR PO SCH ×2 (08:15→20:15)
[2021-11-02] MEDS: ASPIRIN 325MG EC TABLET PO SCH (09:00)
[2021-11-02] MEDS: DEXAMETHASONE 4MG TABLET PO SCH (09:00)
[2021-11-02] MEDS: CHOLECALCIFEROL (D3) 1000 UNIT TABLET PO SCH (09:00)
[2021-11-02] MEDS: FAMOTIDINE 20MG TABLET PO SCH (09:00)
[2021-11-02] MEDS: ZINC SULFATE 220 MG ( 50 ) CAPSULE PO SCH (09:00)
[2021-11-02] MEDS: ASCORBIC ACID 500 MG TABLET PO SCH ×2 (09:00→20:37)
[2021-11-02] MEDS: DOXYCYCLINE HYCLATE 100MG CAPSULE PO SCH ×2 (09:00→17:00)
[2021-11-02] MEDS: SEVELAMER CARBONATE 800 MG TABLET PO SCH ×3 (09:23→17:58)
[2021-11-02 12:00] VITALS: BP 127/91
[2021-11-02] MEDS ORDERED: VANCOMYCIN 500MG PREMIX 100 ML IV SCH (14:00)
[2021-11-02 16:00] VITALS: BP 133/88
[2021-11-02] MEDS: CEFEPIME 1,000 MG in DEXTROSE 5% WATER 50 ML IV SCH (17:58)
[2021-11-02 20:00] VITALS: BP 120/82
[2021-11-02] MEDS: ENOXAPARIN 30MG/0.3ML SYR SUBCUT SCH (20:38)
[2021-11-03] VITALS: BP 125/82
[2021-11-03] MEDS: ALBUTEROL 6.7GM HFA INHALER ORI SCH ×4 (03:00→21:00)
[2021-11-03 04:00] VITALS: BP 123/80
[2021-11-03] MEDS: ACETAMINOPHEN 325MG TABLET PO PRN ×3 (04:23→20:46)
[2021-11-03 08:00] VITALS: BP_SYST 119; BP_SYST 138; BP_DIAS 72; BP_DIAS 91
[2021-11-03] MEDS: SEVELAMER CARBONATE 800 MG TABLET PO SCH ×3 (08:09→18:25)
[2021-11-03] MEDS: GUAIFENESIN/DM 600MG/30MG ER TAB 12HR PO SCH ×2 (08:15→20:46)
[2021-11-03] MEDS: ZINC SULFATE 220 MG ( 50 ) CAPSULE PO SCH (09:00)
[2021-11-03] MEDS: DOXYCYCLINE HYCLATE 100MG CAPSULE PO SCH ×2 (09:00→17:00)
[2021-11-03] MEDS: ASPIRIN 325MG EC TABLET PO SCH (09:00)
[2021-11-03] MEDS: ASCORBIC ACID 500 MG TABLET PO SCH ×2 (09:00→20:46)
[2021-11-03] MEDS: DEXAMETHASONE 4MG TABLET PO SCH (09:00)
[2021-11-03] MEDS: CHOLECALCIFEROL (D3) 1000 UNIT TABLET PO SCH (09:00)
[2021-11-03] MEDS: FAMOTIDINE 20MG TABLET PO SCH (09:00)
[2021-11-03 12:00] VITALS: BP 138/91
[2021-11-03 16:00] VITALS: BP 106/59
[2021-11-03] MEDS: CEFEPIME 1,000 MG in DEXTROSE 5% WATER 50 ML IV SCH (18:24)
[2021-11-03 20:00] VITALS: BP 116/78
[2021-11-03] MEDS: ENOXAPARIN 30MG/0.3ML SYR SUBCUT SCH (20:46)
[2021-11-04] VITALS: BP 115/73
[2021-11-04] MEDS: ALBUTEROL 6.7GM HFA INHALER ORI SCH ×4 (03:00→20:51)
[2021-11-04 04:00] VITALS: BP 129/89
[2021-11-04 06:09] LABS: PHOSPHORUS 4.6 mg/dL (2.5-4.9)
[2021-11-04 06:25] LABS: EOSINOPHILS % 1.6 % (0.0-5.0); HEMATOCRIT. 26.3 % (42.0-52.0); HEMOGLOBIN. 8.6 g/dL (14.0-18.0); LYMPHOCYTES % 16.6 % (20.0-50.0); MEAN CORPUSCULAR HEMOGLOBIN 29.5 pg (28.0-32.0); MEAN CORPUSCULAR VOLUME 90.6 fL (80.0-94.0); MEAN PLATELET VOLUME 8.7 fl (7.4-10.4); MONOCYTES % 8.9 % (2.0-8.0); NEUTROPHILS % 70.9 % (40.0-76.0); PLATELET 367 x1000/uL (130-400); RED CELL DISTRIBUTION WIDTH 15.8 % (11.6-14.6)
[2021-11-04] MEDS: GUAIFENESIN/DM 600MG/30MG ER TAB 12HR PO SCH ×3 (08:15→20:15)
[2021-11-04] MEDS: CHOLECALCIFEROL (D3) 1000 UNIT TABLET PO SCH ×2 (08:33→09:00)
[2021-11-04] MEDS: SEVELAMER CARBONATE 800 MG TABLET PO SCH ×3 (08:34→16:48)
[2021-11-04] MEDS: FAMOTIDINE 20MG TABLET PO SCH ×2 (08:34→09:00)
[2021-11-04] MEDS: ZINC SULFATE 220 MG ( 50 ) CAPSULE PO SCH ×2 (08:34→09:00)
[2021-11-04] MEDS: ASPIRIN 325MG EC TABLET PO SCH ×2 (08:34→09:00)
[2021-11-04] MEDS: DOXYCYCLINE HYCLATE 100MG CAPSULE PO SCH ×2 (08:34→16:48)
[2021-11-04] MEDS: ASCORBIC ACID 500 MG TABLET PO SCH ×3 (08:34→20:51)
[2021-11-04] MEDS: DEXAMETHASONE 4MG TABLET PO SCH ×2 (08:37→09:00)
[2021-11-04 12:00] VITALS: BP 144/78
[2021-11-04 16:00] VITALS: BP 144/78
[2021-11-04] MEDS ORDERED: LACTULOSE 20G/30ML UDC PO NR (16:30)
[2021-11-04] MEDS: ACETAMINOPHEN 325MG TABLET PO PRN ×2 (16:48→20:51)
[2021-11-04] MEDS: CEFEPIME 1,000 MG in DEXTROSE 5% WATER 50 ML IV SCH (16:48)
[2021-11-04] MEDS: DOCUSATE SODIUM 100MG CAPSULE PO SCH (16:50)
[2021-11-04 20:27] VITALS: BP 132/83
[2021-11-04] MEDS: ENOXAPARIN 30MG/0.3ML SYR SUBCUT SCH (20:51)
[2021-11-04] MEDS ORDERED: TRAMADOL 50MG TABLET PO PRN (21:45)
[2021-11-04] MEDS ORDERED: METHYLPREDNISOLONE SOD SUCC 125 MG/2 ML VIAL IV NR ×2 (21:45)
[2021-11-04] MEDS: TRAMADOL 50MG TABLET PO PRN (22:44)
[2021-11-04 23:56] VITALS: BP 132/87
[2021-11-05] MEDS: ACETAMINOPHEN 325MG TABLET PO PRN ×3 (02:10→20:44)
[2021-11-05] MEDS: ALBUTEROL 6.7GM HFA INHALER ORI SCH ×4 (03:00→20:44)
[2021-11-05 04:00] VITALS: BP 117/70
[2021-11-05] MEDS: TRAMADOL 50MG TABLET PO PRN ×2 (06:50→15:24)
[2021-11-05] MEDS: DOXYCYCLINE HYCLATE 100MG CAPSULE PO SCH ×2 (08:14→16:56)
[2021-11-05] MEDS: DEXAMETHASONE 4MG TABLET PO SCH (08:14)
[2021-11-05] MEDS: SEVELAMER CARBONATE 800 MG TABLET PO SCH ×3 (08:14→16:56)
[2021-11-05] MEDS: GUAIFENESIN/DM 600MG/30MG ER TAB 12HR PO SCH ×2 (08:15→20:15)
[2021-11-05] MEDS: ASPIRIN 325MG EC TABLET PO SCH (09:00)
[2021-11-05] MEDS: FOLIC ACID 1MG TABLET PO SCH (09:00)
[2021-11-05] MEDS: POLYETHYLENE GLYCOL 3350 (17GM) 1 DOSE PACK PO SCH ×2 (09:00→15:24)
[2021-11-05] MEDS: CHOLECALCIFEROL (D3) 1000 UNIT TABLET PO SCH (09:00)
[2021-11-05] MEDS: ZINC SULFATE 220 MG ( 50 ) CAPSULE PO SCH (09:00)
[2021-11-05] MEDS: FAMOTIDINE 20MG TABLET PO SCH (09:00)
[2021-11-05] MEDS: DOCUSATE SODIUM 100MG CAPSULE PO SCH ×2 (09:00→15:24)
[2021-11-05] MEDS: ASCORBIC ACID 500 MG TABLET PO SCH ×2 (09:00→20:44)
[2021-11-05 12:00] VITALS: BP 122/74
[2021-11-05 16:00] VITALS: BP 112/70
[2021-11-05] MEDS: CEFEPIME 1,000 MG in DEXTROSE 5% WATER 50 ML IV SCH (16:56)
[2021-11-05 20:00] VITALS: BP 145/83
[2021-11-05] MEDS: ENOXAPARIN 30MG/0.3ML SYR SUBCUT SCH (20:44)
[2021-11-06] VITALS: BP 115/75
[2021-11-06] MEDS: ALBUTEROL 6.7GM HFA INHALER ORI SCH ×4 (03:00→21:00)
[2021-11-06 04:00] VITALS: BP 114/64
[2021-11-06] MEDS: TRAMADOL 50MG TABLET PO PRN ×2 (05:26→13:57)
[2021-11-06 08:00] VITALS: BP 110/62
[2021-11-06] MEDS: SEVELAMER CARBONATE 800 MG TABLET PO SCH ×3 (08:10→17:55)
[2021-11-06] MEDS: GUAIFENESIN/DM 600MG/30MG ER TAB 12HR PO SCH ×2 (08:15→22:04)
[2021-11-06] MEDS: FOLIC ACID 1MG TABLET PO SCH (09:00)
[2021-11-06] MEDS: ASPIRIN 325MG EC TABLET PO SCH (09:00)
[2021-11-06] MEDS: DEXAMETHASONE 4MG TABLET PO SCH (11:24)
[2021-11-06] MEDS: ASCORBIC ACID 500 MG TABLET PO SCH ×2 (11:24→22:05)
[2021-11-06] MEDS: DOCUSATE SODIUM 100MG CAPSULE PO SCH ×2 (11:24→17:55)
[2021-11-06] MEDS: FAMOTIDINE 20MG TABLET PO SCH (11:24)
[2021-11-06] MEDS: CHOLECALCIFEROL (D3) 1000 UNIT TABLET PO SCH (11:24)
[2021-11-06] MEDS: ZINC SULFATE 220 MG ( 50 ) CAPSULE PO SCH (11:24)
[2021-11-06 11:35] VITALS: BP 111/60
[2021-11-06] MEDS ORDERED: LIDOCAINE HCL/PF 1% 10 MG/ML 5ML VIAL ONE (12:37)
[2021-11-06] MEDS ORDERED: SODIUM BICARBONATE 4% (2.4MEQ) 5ML VIAL IV ONE (12:38)
[2021-11-06 16:00] VITALS: BP 112/64
[2021-11-06] MEDS: CEFEPIME 1,000 MG in DEXTROSE 5% WATER 50 ML IV SCH (17:55)
[2021-11-06 20:00] VITALS: BP 100/58
[2021-11-06] MEDS ORDERED: VANCOMYCIN 500MG PREMIX 100 ML IV SCH (21:00)
[2021-11-06] MEDS: ENOXAPARIN 30MG/0.3ML SYR SUBCUT SCH (22:05)
[2021-11-07] VITALS: BP 126/70
[2021-11-07] MEDS: ALBUTEROL 6.7GM HFA INHALER ORI SCH ×4 (03:00→21:00)
[2021-11-07 04:00] VITALS: BP 132/86
[2021-11-07 07:53] VITALS: BP 119/65
[2021-11-07] MEDS: GUAIFENESIN/DM 600MG/30MG ER TAB 12HR PO SCH ×3 (08:15→21:36)
[2021-11-07] MEDS: CHOLECALCIFEROL (D3) 1000 UNIT TABLET PO SCH (08:16)
[2021-11-07] MEDS: POLYETHYLENE GLYCOL 3350 (17GM) 1 DOSE PACK PO SCH ×2 (08:16→08:21)
[2021-11-07] MEDS: ASPIRIN 325MG EC TABLET PO SCH ×2 (08:16→08:21)
[2021-11-07] MEDS: DOCUSATE SODIUM 100MG CAPSULE PO SCH ×3 (08:16→16:03)
[2021-11-07] MEDS: FOLIC ACID 1MG TABLET PO SCH ×2 (08:16→08:21)
[2021-11-07] MEDS: ZINC SULFATE 220 MG ( 50 ) CAPSULE PO SCH ×2 (08:16→08:21)
[2021-11-07] MEDS: DEXAMETHASONE 4MG TABLET PO SCH ×2 (08:16→08:21)
[2021-11-07] MEDS: SEVELAMER CARBONATE 800 MG TABLET PO SCH ×3 (08:16→17:56)
[2021-11-07] MEDS: ASCORBIC ACID 500 MG TABLET PO SCH ×2 (08:16→21:35)
[2021-11-07] MEDS: FAMOTIDINE 20MG TABLET PO SCH ×2 (08:17→08:21)
[2021-11-07 08:18] LABS: HEMATOCRIT 21.3 % (42.0-52.0); HEMOGLOBIN 7.2 g/dL (14.0-18.0); MEAN CORPUSCULAR HEMOGLOBIN 30.2 pg (28.0-32.0); MEAN CORPUSCULAR VOLUME 89.7 fL (80.0-94.0); PLATELET 369 x1000/uL (130-400); RED BLOOD CELL COUNT 2.37 mill/uL (4.7-6.1); RED CELL DISTRIBUTION WIDTH 16.1 % (11.6-14.6)
[2021-11-07] MEDS ORDERED: SODIUM BICARBONATE 8.4% 1 MEQ/ML 50ML SYR IV NR (09:45)
[2021-11-07] MEDS ORDERED: SODIUM POLYSTYRENE SULFONATE 15 G/60 ML BOT PO NR (09:45)
[2021-11-07] MEDS: TRAMADOL 50MG TABLET PO PRN ×2 (11:04→21:36)
[2021-11-07 11:58] VITALS: BP 141/88
[2021-11-07 16:00] VITALS: BP 125/80
[2021-11-07] MEDS: CEFEPIME 1,000 MG in DEXTROSE 5% WATER 50 ML IV SCH (17:56)
[2021-11-07 19:31] LABS: HEMATOCRIT 25.7 % (42.0-52.0); HEMOGLOBIN 8.5 g/dL (14.0-18.0)
[2021-11-07 20:00] VITALS: BP 125/80
[2021-11-07] MEDS: ENOXAPARIN 30MG/0.3ML SYR SUBCUT SCH (21:36)
[2021-11-08] VITALS (7 sets, daily range): BP systolic 100–126; BP diastolic 60–83
[2021-11-08] MEDS: ACETAMINOPHEN 325MG TABLET PO PRN ×2 (01:22→11:34)
[2021-11-08] MEDS: ALBUTEROL 6.7GM HFA INHALER ORI SCH (03:00)
[2021-11-08] MEDS: TRAMADOL 50MG TABLET PO PRN ×2 (05:42→14:55)
[2021-11-08 08:08] LABS: HEMATOCRIT. 23.2 % (42.0-52.0); HEMOGLOBIN. 7.2 g/dL (14.0-18.0); MEAN CORPUSCULAR HEMOGLOBIN 29.8 pg (28.0-32.0); MEAN CORPUSCULAR VOLUME 95.8 fL (80.0-94.0); PLATELET 373 x1000/uL (130-400); RED BLOOD CELL COUNT 2.43 mill/uL (4.7-6.1); RED CELL DISTRIBUTION WIDTH 16.5 % (11.6-14.6)
[2021-11-08] MEDS: GUAIFENESIN/DM 600MG/30MG ER TAB 12HR PO SCH ×2 (08:15→21:00)
[2021-11-08] MEDS: ASCORBIC ACID 500 MG TABLET PO SCH ×2 (08:42→21:38)
[2021-11-08] MEDS: ASPIRIN 325MG EC TABLET PO SCH (08:42)
[2021-11-08] MEDS: CHOLECALCIFEROL (D3) 1000 UNIT TABLET PO SCH (08:42)
[2021-11-08] MEDS: SEVELAMER CARBONATE 800 MG TABLET PO SCH ×3 (08:42→17:40)
[2021-11-08] MEDS: DOCUSATE SODIUM 100MG CAPSULE PO SCH ×2 (08:43→17:40)
[2021-11-08] MEDS: FOLIC ACID 1MG TABLET PO SCH (08:43)
[2021-11-08] MEDS: FAMOTIDINE 20MG TABLET PO SCH (08:43)
[2021-11-08] MEDS: POLYETHYLENE GLYCOL 3350 (17GM) 1 DOSE PACK PO SCH (08:52)
[2021-11-08] MEDS: DEXAMETHASONE 4MG TABLET PO SCH (08:52)
[2021-11-08] MEDS: ZINC SULFATE 220 MG ( 50 ) CAPSULE PO SCH (08:52)
[2021-11-08 09:56] LABS: PLATELET ESTIMATE NORMAL
[2021-11-08] MEDS: LIDOCAINE 5% PATCH TOP SCH (15:43)
[2021-11-08 16:08] LABS: HEMATOCRIT 23.6 % (42.0-52.0); HEMOGLOBIN 7.6 g/dL (14.0-18.0)
[2021-11-08] MEDS: CEFEPIME 1,000 MG in DEXTROSE 5% WATER 50 ML IV SCH (17:40)
[2021-11-08] MEDS: DICLOFENAC SODIUM 1% GEL 50GM TOP SCH ×2 (17:41→21:40)
[2021-11-08] MEDS ORDERED: EPOETIN ALFA-EPBX 4,000 UNIT/ML VIAL SUBCUT NR (21:00)
[2021-11-08] MEDS: ENOXAPARIN 30MG/0.3ML SYR SUBCUT SCH (21:37)
[2021-11-09] VITALS (12 sets, daily range): BP systolic 92–125; BP diastolic 60–86
[2021-11-09 07:15] LABS: BASOPHILS % 0.7 % (0.0-2.0); EOSINOPHILS % 2.2 % (0.0-5.0); HEMATOCRIT. 21.3 % (42.0-52.0); MEAN CORPUSCULAR HEMOGLOBIN 29.9 pg (28.0-32.0); MEAN CORPUSCULAR VOLUME 90.8 fL (80.0-94.0); MEAN PLATELET VOLUME 8.2 fl (7.4-10.4); MONOCYTES % 11.8 % (2.0-8.0); NEUTROPHILS % 65.3 % (40.0-76.0); PLATELET 371 x1000/uL (130-400); RED BLOOD CELL COUNT 2.35 mill/uL (4.7-6.1)
[2021-11-09] MEDS: ASCORBIC ACID 500 MG TABLET PO SCH ×2 (08:10→21:45)
[2021-11-09] MEDS: DOCUSATE SODIUM 100MG CAPSULE PO SCH ×2 (08:10→18:16)
[2021-11-09] MEDS: ASPIRIN 325MG EC TABLET PO SCH (08:10)
[2021-11-09] MEDS: CHOLECALCIFEROL (D3) 1000 UNIT TABLET PO SCH (08:10)
[2021-11-09] MEDS: FOLIC ACID 1MG TABLET PO SCH (08:10)
[2021-11-09] MEDS: LIDOCAINE 5% PATCH TOP SCH (08:10)
[2021-11-09] MEDS: FAMOTIDINE 20MG TABLET PO SCH (08:11)
[2021-11-09] MEDS: SEVELAMER CARBONATE 800 MG TABLET PO SCH ×3 (08:11→18:16)
[2021-11-09] MEDS: GUAIFENESIN/DM 600MG/30MG ER TAB 12HR PO SCH ×2 (08:15→20:15)
[2021-11-09] MEDS: ZINC SULFATE 220 MG ( 50 ) CAPSULE PO SCH (08:18)
[2021-11-09] MEDS: DEXAMETHASONE 4MG TABLET PO SCH (08:18)
[2021-11-09] MEDS: POLYETHYLENE GLYCOL 3350 (17GM) 1 DOSE PACK PO SCH (08:18)
[2021-11-09] MEDS: DICLOFENAC SODIUM 1% GEL 50GM TOP SCH ×4 (09:33→21:56)
[2021-11-09] MEDS ORDERED: VANCOMYCIN 750MG PMX (XELLIA) 150 ML IV SCH (13:00)
[2021-11-09] MEDS: CEFEPIME 1,000 MG in DEXTROSE 5% WATER 50 ML IV SCH (18:16)
[2021-11-09 20:04] LABS: HEMATOCRIT 27.7 % (42.0-52.0); HEMOGLOBIN 9.3 g/dL (14.0-18.0)
[2021-11-09] MEDS: EPOETIN ALFA-EPBX 4,000 UNIT/ML VIAL SUBCUT SCH (21:46)
[2021-11-09] MEDS: ENOXAPARIN 30MG/0.3ML SYR SUBCUT SCH (21:46)
[2021-11-09] MEDS: ACETAMINOPHEN 325MG TABLET PO PRN (21:51)
[2021-11-10] VITALS: BP 97/52
[2021-11-10 03:42] VITALS: BP 121/74
[2021-11-10 07:12] LABS: BASOPHILS % 1.4 % (0.0-2.0); EOSINOPHILS % 2.3 % (0.0-5.0); HEMATOCRIT. 25.6 % (42.0-52.0); HEMOGLOBIN. 8.5 g/dL (14.0-18.0); LYMPHOCYTES % 14.8 % (20.0-50.0); MEAN CORPUSCULAR HEMOGLOBIN 29.8 pg (28.0-32.0); MEAN CORPUSCULAR VOLUME 90.1 fL (80.0-94.0); MEAN PLATELET VOLUME 8.3 fl (7.4-10.4); MONOCYTES % 12.3 % (2.0-8.0); NEUTROPHILS % 69.2 % (40.0-76.0); PLATELET 374 x1000/uL (130-400); RED BLOOD CELL COUNT 2.84 mill/uL (4.7-6.1); RED CELL DISTRIBUTION WIDTH 16.5 % (11.6-14.6)
[2021-11-10 08:00] VITALS: BP 135/88
[2021-11-10] MEDS: GUAIFENESIN/DM 600MG/30MG ER TAB 12HR PO SCH ×2 (08:15→20:15)
[2021-11-10] MEDS: SEVELAMER CARBONATE 800 MG TABLET PO SCH ×3 (08:18→17:11)
[2021-11-10] MEDS: FAMOTIDINE 20MG TABLET PO SCH (08:18)
[2021-11-10] MEDS: LIDOCAINE 5% PATCH TOP SCH (08:18)
[2021-11-10] MEDS: ASPIRIN 325MG EC TABLET PO SCH (08:18)
[2021-11-10] MEDS: CHOLECALCIFEROL (D3) 1000 UNIT TABLET PO SCH (08:19)
[2021-11-10] MEDS: FOLIC ACID 1MG TABLET PO SCH (08:19)
[2021-11-10] MEDS: ASCORBIC ACID 500 MG TABLET PO SCH ×2 (08:19→20:47)
[2021-11-10] MEDS: DOCUSATE SODIUM 100MG CAPSULE PO SCH ×2 (08:19→17:11)
[2021-11-10] MEDS: DICLOFENAC SODIUM 1% GEL 50GM TOP SCH ×4 (08:20→21:09)
[2021-11-10] MEDS: ZINC SULFATE 220 MG ( 50 ) CAPSULE PO SCH (08:25)
[2021-11-10] MEDS: DEXAMETHASONE 4MG TABLET PO SCH (08:25)
[2021-11-10] MEDS: POLYETHYLENE GLYCOL 3350 (17GM) 1 DOSE PACK PO SCH (08:25)
[2021-11-10] MEDS: ACETAMINOPHEN 325MG TABLET PO PRN ×2 (10:51→23:19)
[2021-11-10 12:00] VITALS: BP 124/82
[2021-11-10] MEDS ORDERED: SODIUM POLYSTYRENE SULFONATE 15 G/60 ML BOT PO NR (12:00)
[2021-11-10 16:00] VITALS: BP 127/89
[2021-11-10] MEDS: CEFEPIME 1,000 MG in DEXTROSE 5% WATER 50 ML IV SCH (17:11)
[2021-11-10] MEDS: LACTULOSE 20G/30ML UDC PO PRN (19:14)
[2021-11-10 20:00] VITALS: BP 127/88
[2021-11-10] MEDS: ENOXAPARIN 30MG/0.3ML SYR SUBCUT SCH (20:46)
[2021-11-11] VITALS: BP 133/79
[2021-11-11 04:00] VITALS: BP 146/85
[2021-11-11 07:36] LABS: BASOPHILS % 1.2 % (0.0-2.0); EOSINOPHILS % 2.4 % (0.0-5.0); HEMATOCRIT. 24.7 % (42.0-52.0); LYMPHOCYTES % 11.3 % (20.0-50.0); MEAN CORPUSCULAR HEMOGLOBIN 29.8 pg (28.0-32.0); MEAN PLATELET VOLUME 8.5 fl (7.4-10.4); MONOCYTES % 11.3 % (2.0-8.0); NEUTROPHILS % 73.8 % (40.0-76.0); PLATELET 386 x1000/uL (130-400); RED BLOOD CELL COUNT 2.68 mill/uL (4.7-6.1); RED CELL DISTRIBUTION WIDTH 16.7 % (11.6-14.6)
[2021-11-11 07:46] LABS: PHOSPHORUS 4.5 mg/dL (2.5-4.9)
[2021-11-11 08:00] VITALS: BP 134/82
[2021-11-11] MEDS: SEVELAMER CARBONATE 800 MG TABLET PO SCH ×3 (11:29→18:37)
[2021-11-11] MEDS: ASCORBIC ACID 500 MG TABLET PO SCH ×2 (11:29→20:56)
[2021-11-11] MEDS: GUAIFENESIN 200MG/10ML SUGAR FREE UDC PO PRN (11:29)
[2021-11-11] MEDS: LACTULOSE 20G/30ML UDC PO PRN (11:29)
[2021-11-11] MEDS: ZINC SULFATE 220 MG ( 50 ) CAPSULE PO SCH (11:30)
[2021-11-11] MEDS: FAMOTIDINE 20MG TABLET PO SCH (11:30)
[2021-11-11] MEDS: FOLIC ACID 1MG TABLET PO SCH (11:30)
[2021-11-11] MEDS: ACETAMINOPHEN 325MG TABLET PO PRN (11:30)
[2021-11-11] MEDS: CHOLECALCIFEROL (D3) 1000 UNIT TABLET PO SCH (11:31)
[2021-11-11] MEDS: DOCUSATE SODIUM 100MG CAPSULE PO SCH ×2 (11:31→18:37)
[2021-11-11] MEDS: ASPIRIN 325MG EC TABLET PO SCH (11:31)
[2021-11-11] MEDS: POLYETHYLENE GLYCOL 3350 (17GM) 1 DOSE PACK PO SCH (11:31)
[2021-11-11] MEDS: LIDOCAINE 5% PATCH TOP SCH (11:33)
[2021-11-11] MEDS: DICLOFENAC SODIUM 1% GEL 50GM TOP SCH ×4 (11:44→20:50)
[2021-11-11] MEDS ORDERED: NALOXONE HCL 0.4MG/ML VIAL IV PRN (11:45)
[2021-11-11] MEDS ORDERED: TRAMADOL 50MG TABLET PO PRN (11:45)
[2021-11-11 12:00] VITALS: BP 131/82
[2021-11-11] MEDS: GUAIFENESIN/DM 600MG/30MG ER TAB 12HR PO SCH ×2 (12:03→20:15)
[2021-11-11] MEDS: DEXAMETHASONE 4MG TABLET PO SCH (12:03)
[2021-11-11 16:00] VITALS: BP 126/82
[2021-11-11] MEDS: CEFEPIME 1,000 MG in DEXTROSE 5% WATER 50 ML IV SCH (18:37)
[2021-11-11] MEDS: TRAMADOL 50MG TABLET PO PRN (18:38)
[2021-11-11 20:00] VITALS: BP 136/85
[2021-11-11] MEDS: ENOXAPARIN 30MG/0.3ML SYR SUBCUT SCH (20:50)
[2021-11-11] MEDS: EPOETIN ALFA-EPBX 4,000 UNIT/ML VIAL SUBCUT SCH (20:50)
[2021-11-12] VITALS: BP 120/70
[2021-11-12] MEDS: TRAMADOL 50MG TABLET PO PRN ×4 (00:39→21:08)
[2021-11-12 04:00] VITALS: BP 120/69
[2021-11-12 07:35] LABS: HEMATOCRIT 24.7 % (42.0-52.0); HEMOGLOBIN 8.1 g/dL (14.0-18.0); PLATELET 374 x1000/uL (130-400); RED BLOOD CELL COUNT 2.71 mill/uL (4.7-6.1); RED CELL DISTRIBUTION WIDTH 16.4 % (11.6-14.6)
[2021-11-12 08:00] VITALS: BP 137/87
[2021-11-12] MEDS: POLYETHYLENE GLYCOL 3350 (17GM) 1 DOSE PACK PO SCH (09:00)
[2021-11-12] MEDS: LIDOCAINE 5% PATCH TOP SCH (10:37)
[2021-11-12] MEDS: DICLOFENAC SODIUM 1% GEL 50GM TOP SCH ×4 (10:37→21:10)
[2021-11-12] MEDS: LACTULOSE 20G/30ML UDC PO PRN (10:37)
[2021-11-12] MEDS: GUAIFENESIN 200MG/10ML SUGAR FREE UDC PO PRN (10:38)
[2021-11-12] MEDS: ZINC SULFATE 220 MG ( 50 ) CAPSULE PO SCH (10:38)
[2021-11-12] MEDS: ASCORBIC ACID 500 MG TABLET PO SCH ×2 (10:38→21:06)
[2021-11-12] MEDS: ASPIRIN 325MG EC TABLET PO SCH (10:39)
[2021-11-12] MEDS: FAMOTIDINE 20MG TABLET PO SCH (10:40)
[2021-11-12] MEDS: DEXAMETHASONE 4MG TABLET PO SCH (10:40)
[2021-11-12] MEDS: SEVELAMER CARBONATE 800 MG TABLET PO SCH ×3 (10:40→18:54)
[2021-11-12] MEDS: DOCUSATE SODIUM 100MG CAPSULE PO SCH ×2 (10:40→18:54)
[2021-11-12] MEDS: GUAIFENESIN/DM 600MG/30MG ER TAB 12HR PO SCH ×2 (10:41→20:15)
[2021-11-12] MEDS: FOLIC ACID 1MG TABLET PO SCH (10:41)
[2021-11-12] MEDS: CHOLECALCIFEROL (D3) 1000 UNIT TABLET PO SCH (10:41)
[2021-11-12 12:00] VITALS: BP 120/81
[2021-11-12] MEDS ORDERED: VANCOMYCIN 500MG PREMIX 100 ML IV NR (14:00)
[2021-11-12 16:00] VITALS: BP 128/83
[2021-11-12] MEDS: CEFEPIME 1,000 MG in DEXTROSE 5% WATER 50 ML IV SCH (18:54)
[2021-11-12 20:00] VITALS: BP 114/75
[2021-11-12] MEDS: ENOXAPARIN 30MG/0.3ML SYR SUBCUT SCH (21:07)
[2021-11-13] VITALS: BP 115/67
[2021-11-13 04:00] VITALS: BP 116/68
[2021-11-13 07:24] LABS: HEMATOCRIT 23.1 % (42.0-52.0); HEMOGLOBIN 7.7 g/dL (14.0-18.0)
[2021-11-13 08:00] VITALS: BP 135/88
[2021-11-13] MEDS: GUAIFENESIN/DM 600MG/30MG ER TAB 12HR PO SCH ×2 (08:15→21:36)
[2021-11-13] MEDS: SEVELAMER CARBONATE 800 MG TABLET PO SCH ×3 (08:59→19:14)
[2021-11-13] MEDS: TRAMADOL 50MG TABLET PO PRN ×2 (09:00→21:36)
[2021-11-13] MEDS: DICLOFENAC SODIUM 1% GEL 50GM TOP SCH ×4 (09:00→21:39)
[2021-11-13] MEDS: POLYETHYLENE GLYCOL 3350 (17GM) 1 DOSE PACK PO SCH (09:00)
[2021-11-13 12:00] VITALS: BP 110/87
[2021-11-13] MEDS: DEXAMETHASONE 4MG TABLET PO SCH (12:08)
[2021-11-13] MEDS: ASCORBIC ACID 500 MG TABLET PO SCH ×2 (12:08→21:36)
[2021-11-13] MEDS: ZINC SULFATE 220 MG ( 50 ) CAPSULE PO SCH (12:08)
[2021-11-13] MEDS: FOLIC ACID 1MG TABLET PO SCH (12:09)
[2021-11-13] MEDS: DOCUSATE SODIUM 100MG CAPSULE PO SCH ×2 (12:09→17:45)
[2021-11-13] MEDS: CHOLECALCIFEROL (D3) 1000 UNIT TABLET PO SCH (12:09)
[2021-11-13] MEDS: GUAIFENESIN 200MG/10ML SUGAR FREE UDC PO PRN (12:09)
[2021-11-13] MEDS: ASPIRIN 325MG EC TABLET PO SCH (12:09)
[2021-11-13] MEDS: FAMOTIDINE 20MG TABLET PO SCH (12:09)
[2021-11-13] MEDS: LIDOCAINE 5% PATCH TOP SCH (12:10)
[2021-11-13 16:00] VITALS: BP 120/84
[2021-11-13] MEDS: CEFEPIME 1,000 MG in DEXTROSE 5% WATER 50 ML IV SCH (19:13)
[2021-11-13] MEDS: ALBUTEROL 6.7GM HFA INHALER ORI SCH (19:53)
[2021-11-13 20:00] VITALS: BP 101/58
[2021-11-13] MEDS: EPOETIN ALFA-EPBX 4,000 UNIT/ML VIAL SUBCUT SCH (21:37)
[2021-11-13] MEDS: ENOXAPARIN 30MG/0.3ML SYR SUBCUT SCH (21:37)
[2021-11-14] VITALS: BP 115/68
[2021-11-14] MEDS: ALBUTEROL 6.7GM HFA INHALER ORI SCH ×4 (02:00→21:00)
[2021-11-14 04:00] VITALS: BP 126/76
[2021-11-14 08:00] VITALS: BP 150/92
[2021-11-14] MEDS: GUAIFENESIN/DM 600MG/30MG ER TAB 12HR PO SCH ×2 (08:15→20:15)
[2021-11-14] MEDS: SEVELAMER CARBONATE 800 MG TABLET PO SCH ×3 (08:30→17:40)
[2021-11-14] MEDS: GUAIFENESIN 200MG/10ML SUGAR FREE UDC PO PRN (08:30)
[2021-11-14] MEDS: FOLIC ACID 1MG TABLET PO SCH (08:33)
[2021-11-14] MEDS: FAMOTIDINE 20MG TABLET PO SCH (08:33)
[2021-11-14] MEDS: DOCUSATE SODIUM 100MG CAPSULE PO SCH ×2 (08:33→17:40)
[2021-11-14] MEDS: ZINC SULFATE 220 MG ( 50 ) CAPSULE PO SCH (08:33)
[2021-11-14] MEDS: ASPIRIN 325MG EC TABLET PO SCH (08:33)
[2021-11-14] MEDS: CHOLECALCIFEROL (D3) 1000 UNIT TABLET PO SCH (08:33)
[2021-11-14] MEDS: LIDOCAINE 5% PATCH TOP SCH (08:42)
[2021-11-14] MEDS: POLYETHYLENE GLYCOL 3350 (17GM) 1 DOSE PACK PO SCH (08:43)
[2021-11-14] MEDS: DEXAMETHASONE 4MG TABLET PO SCH (08:52)
[2021-11-14] MEDS: ASCORBIC ACID 500 MG TABLET PO SCH ×2 (08:53→21:00)
[2021-11-14] MEDS: DICLOFENAC SODIUM 1% GEL 50GM TOP SCH ×4 (09:00→22:12)
[2021-11-14] MEDS: TRAMADOL 50MG TABLET PO PRN ×2 (09:01→18:11)
[2021-11-14] MEDS: LACTULOSE 20G/30ML UDC PO PRN ×2 (09:01→13:31)
[2021-11-14 12:00] VITALS: BP 99/70
[2021-11-14 16:00] VITALS: BP 137/88
[2021-11-14] MEDS: CEFEPIME 1,000 MG in DEXTROSE 5% WATER 50 ML IV SCH (17:41)
[2021-11-14 20:00] VITALS: BP 97/65
[2021-11-14] MEDS: ENOXAPARIN 30MG/0.3ML SYR SUBCUT SCH (22:10)
[2021-11-15] MEDS: ALBUTEROL 6.7GM HFA INHALER ORI SCH ×2 (02:39→09:00)
[2021-11-15 04:00] VITALS: BP 145/69
[2021-11-15] MEDS: TRAMADOL 50MG TABLET PO PRN ×2 (04:44→20:26)
[2021-11-15 08:00] VITALS: BP 135/81
[2021-11-15] MEDS: SEVELAMER CARBONATE 800 MG TABLET PO SCH ×3 (08:14→18:53)
[2021-11-15] MEDS: FAMOTIDINE 20MG TABLET PO SCH (08:15)
[2021-11-15] MEDS: ASPIRIN 325MG EC TABLET PO SCH (08:15)
[2021-11-15] MEDS: CHOLECALCIFEROL (D3) 1000 UNIT TABLET PO SCH (08:15)
[2021-11-15] MEDS: ZINC SULFATE 220 MG ( 50 ) CAPSULE PO SCH (08:15)
[2021-11-15] MEDS: FOLIC ACID 1MG TABLET PO SCH (08:15)
[2021-11-15] MEDS: DEXAMETHASONE 4MG TABLET PO SCH (08:15)
[2021-11-15] MEDS: GUAIFENESIN/DM 600MG/30MG ER TAB 12HR PO SCH ×2 (08:15→20:15)
[2021-11-15] MEDS: ASCORBIC ACID 500 MG TABLET PO SCH ×2 (08:16→20:30)
[2021-11-15] MEDS: DOCUSATE SODIUM 100MG CAPSULE PO SCH ×2 (08:16→17:00)
[2021-11-15] MEDS: POLYETHYLENE GLYCOL 3350 (17GM) 1 DOSE PACK PO SCH (08:23)
[2021-11-15] MEDS: LIDOCAINE 5% PATCH TOP SCH (08:33)
[2021-11-15] MEDS: LACTULOSE 20G/30ML UDC PO PRN ×2 (08:35→16:33)
[2021-11-15 08:48] LABS: BASOPHILS % 0.3 % (0.0-2.0); HEMATOCRIT. 23.8 % (42.0-52.0); HEMOGLOBIN. 7.8 g/dL (14.0-18.0); LYMPHOCYTES % 14.8 % (20.0-50.0); MEAN CORPUSCULAR HEMOGLOBIN 30.3 pg (28.0-32.0); MEAN CORPUSCULAR VOLUME 92.4 fL (80.0-94.0); MEAN PLATELET VOLUME 7.9 fl (7.4-10.4); MONOCYTES % 9.8 % (2.0-8.0); NEUTROPHILS % 74.1 % (40.0-76.0); PLATELET 388 x1000/uL (130-400); RED BLOOD CELL COUNT 2.58 mill/uL (4.7-6.1); RED CELL DISTRIBUTION WIDTH 17.2 % (11.6-14.6)
[2021-11-15] MEDS: DICLOFENAC SODIUM 1% GEL 50GM TOP SCH ×4 (09:00→20:32)
[2021-11-15 10:10] LABS: CHLORIDE 105 mEq/L (98-107)
[2021-11-15 12:00] VITALS: BP 133/80
[2021-11-15 16:00] VITALS: BP 119/74
[2021-11-15] MEDS: IRON SUCROSE COMPLEX 100 MG/5 ML ML IV SCH (16:22)
[2021-11-15] MEDS: ENOXAPARIN 30MG/0.3ML SYR SUBCUT SCH (20:30)
[2021-11-16] MEDS: TRAMADOL 50MG TABLET PO PRN (06:52)
[2021-11-16 08:00] VITALS: BP 138/79
[2021-11-16 08:03] LABS: BASOPHILS % 0.3 % (0.0-2.0); EOSINOPHILS % 0.7 % (0.0-5.0); HEMATOCRIT. 24.5 % (42.0-52.0); HEMOGLOBIN. 7.9 g/dL (14.0-18.0); LYMPHOCYTES % 12.6 % (20.0-50.0); MEAN CORPUSCULAR HEMOGLOBIN 29.7 pg (28.0-32.0); MEAN CORPUSCULAR VOLUME 92.2 fL (80.0-94.0); MEAN PLATELET VOLUME 7.8 fl (7.4-10.4); MONOCYTES % 9.4 % (2.0-8.0); PLATELET 399 x1000/uL (130-400); RED BLOOD CELL COUNT 2.66 mill/uL (4.7-6.1); RED CELL DISTRIBUTION WIDTH 18.1 % (11.6-14.6)
[2021-11-16] MEDS: GUAIFENESIN/DM 600MG/30MG ER TAB 12HR PO SCH ×2 (08:15→20:15)
[2021-11-16] MEDS: SEVELAMER CARBONATE 800 MG TABLET PO SCH ×3 (08:34→17:50)
[2021-11-16] MEDS: DEXAMETHASONE 4MG TABLET PO SCH (08:35)
[2021-11-16] MEDS: CHOLECALCIFEROL (D3) 1000 UNIT TABLET PO SCH (08:35)
[2021-11-16] MEDS: FOLIC ACID 1MG TABLET PO SCH (08:36)
[2021-11-16] MEDS: IRON SUCROSE COMPLEX 100 MG/5 ML ML IV SCH (08:36)
[2021-11-16] MEDS: ZINC SULFATE 220 MG ( 50 ) CAPSULE PO SCH (08:36)
[2021-11-16] MEDS: ASPIRIN 325MG EC TABLET PO SCH (08:36)
[2021-11-16] MEDS: ASCORBIC ACID 500 MG TABLET PO SCH ×2 (08:36→21:00)
[2021-11-16] MEDS: DOCUSATE SODIUM 100MG CAPSULE PO SCH ×2 (08:37→17:00)
[2021-11-16] MEDS: GUAIFENESIN 200MG/10ML SUGAR FREE UDC PO PRN (08:37)
[2021-11-16] MEDS: POLYETHYLENE GLYCOL 3350 (17GM) 1 DOSE PACK PO SCH (08:41)
[2021-11-16] MEDS: FAMOTIDINE 20MG TABLET PO SCH (08:59)
[2021-11-16] MEDS: DICLOFENAC SODIUM 1% GEL 50GM TOP SCH ×3 (09:01→17:00)
[2021-11-16] MEDS: LIDOCAINE 5% PATCH TOP SCH (11:14)
[2021-11-16 12:00] VITALS: BP 125/73
[2021-11-16 16:00] VITALS: BP 127/64
[2021-11-16] MEDS: ENOXAPARIN 30MG/0.3ML SYR SUBCUT SCH (21:00)
[2021-11-16 21:33] VITALS: BP 116/77
[2021-11-17] VITALS: BP 122/75
[2021-11-17 04:00] VITALS: BP 131/78
[2021-11-17 08:00] VITALS: BP 163/85
[2021-11-17] MEDS: GUAIFENESIN/DM 600MG/30MG ER TAB 12HR PO SCH ×2 (08:15→20:15)
[2021-11-17] MEDS: LIDOCAINE 5% PATCH TOP SCH (09:00)
[2021-11-17] MEDS: DICLOFENAC SODIUM 1% GEL 50GM TOP SCH ×4 (09:00→22:21)
[2021-11-17] MEDS: POLYETHYLENE GLYCOL 3350 (17GM) 1 DOSE PACK PO SCH (09:00)
[2021-11-17] MEDS: SEVELAMER CARBONATE 800 MG TABLET PO SCH ×3 (09:46→18:15)
[2021-11-17] MEDS: IRON SUCROSE COMPLEX 100 MG/5 ML ML IV SCH (09:46)
[2021-11-17] MEDS: DEXAMETHASONE 4MG TABLET PO SCH (09:47)
[2021-11-17] MEDS: DOCUSATE SODIUM 100MG CAPSULE PO SCH ×2 (09:48→18:15)
[2021-11-17] MEDS: ASPIRIN 325MG EC TABLET PO SCH (09:48)
[2021-11-17] MEDS: CHOLECALCIFEROL (D3) 1000 UNIT TABLET PO SCH (09:48)
[2021-11-17] MEDS: FOLIC ACID 1MG TABLET PO SCH (09:48)
[2021-11-17] MEDS: ASCORBIC ACID 500 MG TABLET PO SCH ×3 (09:48→22:20)
[2021-11-17] MEDS: FAMOTIDINE 20MG TABLET PO SCH (09:48)
[2021-11-17] MEDS: ZINC SULFATE 220 MG ( 50 ) CAPSULE PO SCH (09:48)
[2021-11-17 12:00] VITALS: BP 139/86
[2021-11-17] MEDS: TRAMADOL 50MG TABLET PO PRN ×2 (12:57→22:22)
[2021-11-17 16:01] VITALS: BP 131/82
[2021-11-17 20:00] VITALS: BP 120/64
[2021-11-17] MEDS: ENOXAPARIN 30MG/0.3ML SYR SUBCUT SCH (21:00)
[2021-11-17] MEDS: EPOETIN ALFA-EPBX 4,000 UNIT/ML VIAL SUBCUT SCH (22:19)
[2021-11-18] VITALS: BP 118/62
[2021-11-18 04:00] VITALS: BP 128/74
[2021-11-18 07:52] LABS: BASOPHILS % 0.2 % (0.0-2.0); EOSINOPHILS % 0.4 % (0.0-5.0); HEMATOCRIT. 27.6 % (42.0-52.0); HEMOGLOBIN. 9.1 g/dL (14.0-18.0); LYMPHOCYTES % 14.6 % (20.0-50.0); MEAN CORPUSCULAR HEMOGLOBIN 30.2 pg (28.0-32.0); MEAN CORPUSCULAR VOLUME 91.6 fL (80.0-94.0); MEAN PLATELET VOLUME 7.4 fl (7.4-10.4); MONOCYTES % 7.5 % (2.0-8.0); NEUTROPHILS % 77.3 % (40.0-76.0); PLATELET 410 x1000/uL (130-400); RED BLOOD CELL COUNT 3.01 mill/uL (4.7-6.1); RED CELL DISTRIBUTION WIDTH 18.1 % (11.6-14.6)
[2021-11-18] MEDS: POLYETHYLENE GLYCOL 3350 (17GM) 1 DOSE PACK PO SCH (09:00)
[2021-11-18] MEDS: CHOLECALCIFEROL (D3) 1000 UNIT TABLET PO SCH (09:23)
[2021-11-18] MEDS: ASCORBIC ACID 500 MG TABLET PO SCH ×2 (09:24→21:00)
[2021-11-18] MEDS: DEXAMETHASONE 4MG TABLET PO SCH (09:24)
[2021-11-18] MEDS: GUAIFENESIN/DM 600MG/30MG ER TAB 12HR PO SCH ×2 (09:24→20:15)
[2021-11-18] MEDS: ZINC SULFATE 220 MG ( 50 ) CAPSULE PO SCH (09:24)
[2021-11-18] MEDS: SEVELAMER CARBONATE 800 MG TABLET PO SCH ×2 (09:24→14:21)
[2021-11-18] MEDS: IRON SUCROSE COMPLEX 100 MG/5 ML ML IV SCH (09:25)
[2021-11-18] MEDS: ASPIRIN 325MG EC TABLET PO SCH (09:37)
[2021-11-18] MEDS: DICLOFENAC SODIUM 1% GEL 50GM TOP SCH ×4 (09:37→22:02)
[2021-11-18] MEDS: FAMOTIDINE 20MG TABLET PO SCH (09:37)
[2021-11-18] MEDS: FOLIC ACID 1MG TABLET PO SCH (09:37)
[2021-11-18] MEDS: LIDOCAINE 5% PATCH TOP SCH (09:38)
[2021-11-18] MEDS: DOCUSATE SODIUM 100MG CAPSULE PO SCH ×2 (09:41→17:00)
[2021-11-18] MEDS: TRAMADOL 50MG TABLET PO PRN (09:41)
[2021-11-18 12:00] VITALS: BP 140/80
[2021-11-18] MEDS: LACTULOSE 20G/30ML UDC PO PRN (14:25)
[2021-11-18 16:00] VITALS: BP 126/72
[2021-11-18 20:00] VITALS: BP 107/62
[2021-11-18] MEDS: ENOXAPARIN 30MG/0.3ML SYR SUBCUT SCH (21:00)
[2021-11-18] MEDS: EPOETIN ALFA-EPBX 4,000 UNIT/ML VIAL SUBCUT SCH (21:00)
[2021-11-19] VITALS: BP 107/70
[2021-11-19 04:00] VITALS: BP 115/68
[2021-11-19] MEDS: SEVELAMER CARBONATE 800 MG TABLET PO SCH ×4 (07:50→17:37)
[2021-11-19 08:00] VITALS: BP 119/74
[2021-11-19] MEDS: GUAIFENESIN/DM 600MG/30MG ER TAB 12HR PO SCH ×2 (08:15→20:15)
[2021-11-19] MEDS: POLYETHYLENE GLYCOL 3350 (17GM) 1 DOSE PACK PO SCH (09:00)
[2021-11-19] MEDS: DICLOFENAC SODIUM 1% GEL 50GM TOP SCH ×4 (09:00→21:15)
[2021-11-19] MEDS: LACTULOSE 20G/30ML UDC PO PRN (09:30)
[2021-11-19] MEDS: ASCORBIC ACID 500 MG TABLET PO SCH ×2 (09:31→21:12)
[2021-11-19] MEDS: ASPIRIN 325MG EC TABLET PO SCH (09:31)
[2021-11-19] MEDS: CHOLECALCIFEROL (D3) 1000 UNIT TABLET PO SCH (09:31)
[2021-11-19] MEDS: FOLIC ACID 1MG TABLET PO SCH (09:31)
[2021-11-19] MEDS: ZINC SULFATE 220 MG ( 50 ) CAPSULE PO SCH (09:31)
[2021-11-19] MEDS: FAMOTIDINE 20MG TABLET PO SCH (09:31)
[2021-11-19] MEDS: IRON SUCROSE COMPLEX 100 MG/5 ML ML IV SCH (09:32)
[2021-11-19] MEDS: DEXAMETHASONE 4MG TABLET PO SCH (09:32)
[2021-11-19] MEDS: DOCUSATE SODIUM 100MG CAPSULE PO SCH ×2 (09:32→17:37)
[2021-11-19] MEDS: TRAMADOL 50MG TABLET PO PRN ×2 (11:10→21:24)
[2021-11-19] MEDS: LIDOCAINE 5% PATCH TOP SCH (11:12)
[2021-11-19 12:00] VITALS: BP 125/76
[2021-11-19 16:00] VITALS: BP 122/72
[2021-11-19] MEDS: ENOXAPARIN 30MG/0.3ML SYR SUBCUT SCH (21:00)
[2021-11-19 21:01] VITALS: BP 130/70
[2021-11-20] VITALS: BP 113/71
[2021-11-20 01:39] LABS: HEMATOCRIT 25.2 % (42.0-52.0); HEMOGLOBIN 8.3 g/dL (14.0-18.0)
[2021-11-20 04:00] VITALS: BP 130/77
[2021-11-20] MEDS: SEVELAMER CARBONATE 800 MG TABLET PO SCH ×3 (07:59→17:26)
[2021-11-20 08:00] VITALS: BP 134/71
[2021-11-20] MEDS: GUAIFENESIN/DM 600MG/30MG ER TAB 12HR PO SCH ×2 (08:15→20:15)
[2021-11-20] MEDS: DICLOFENAC SODIUM 1% GEL 50GM TOP SCH ×4 (09:00→21:11)
[2021-11-20] MEDS: POLYETHYLENE GLYCOL 3350 (17GM) 1 DOSE PACK PO SCH (09:00)
[2021-11-20] MEDS: LIDOCAINE 5% PATCH TOP SCH (09:00)
[2021-11-20] MEDS: ASPIRIN 325MG EC TABLET PO SCH (11:56)
[2021-11-20] MEDS: IRON SUCROSE COMPLEX 100 MG/5 ML ML IV SCH (11:56)
[2021-11-20] MEDS: FOLIC ACID 1MG TABLET PO SCH (11:56)
[2021-11-20] MEDS: LACTULOSE 20G/30ML UDC PO PRN (11:56)
[2021-11-20] MEDS: DOCUSATE SODIUM 100MG CAPSULE PO SCH ×2 (11:57→16:30)
[2021-11-20] MEDS: ZINC SULFATE 220 MG ( 50 ) CAPSULE PO SCH (11:58)
[2021-11-20] MEDS: CHOLECALCIFEROL (D3) 1000 UNIT TABLET PO SCH (11:58)
[2021-11-20] MEDS: ASCORBIC ACID 500 MG TABLET PO SCH ×2 (11:58→21:09)
[2021-11-20] MEDS: FAMOTIDINE 20MG TABLET PO SCH (11:59)
[2021-11-20] MEDS: DEXAMETHASONE 4MG TABLET PO SCH (11:59)
[2021-11-20 12:00] VITALS: BP 116/72
[2021-11-20 16:00] VITALS: BP 110/64
[2021-11-20 20:00] VITALS: BP 125/79
[2021-11-20] MEDS: ENOXAPARIN 30MG/0.3ML SYR SUBCUT SCH (21:09)
[2021-11-20] MEDS: TRAMADOL 50MG TABLET PO PRN (21:11)
[2021-11-20] MEDS: EPOETIN ALFA-EPBX 4,000 UNIT/ML VIAL SUBCUT SCH (21:11)
[2021-11-21] VITALS: BP 117/66
[2021-11-21 04:00] VITALS: BP 124/70
[2021-11-21 07:44] LABS: HEMATOCRIT 26.4 % (42.0-52.0); HEMOGLOBIN 8.6 g/dL (14.0-18.0)
[2021-11-21 08:00] VITALS: BP 120/83
[2021-11-21] MEDS: GUAIFENESIN/DM 600MG/30MG ER TAB 12HR PO SCH ×2 (08:15→20:15)
[2021-11-21] MEDS: FOLIC ACID 1MG TABLET PO SCH (08:31)
[2021-11-21] MEDS: ZINC SULFATE 220 MG ( 50 ) CAPSULE PO SCH (08:31)
[2021-11-21] MEDS: SEVELAMER CARBONATE 800 MG TABLET PO SCH ×3 (08:31→17:43)
[2021-11-21] MEDS: ASCORBIC ACID 500 MG TABLET PO SCH ×2 (08:32→20:41)
[2021-11-21] MEDS: FAMOTIDINE 20MG TABLET PO SCH (08:32)
[2021-11-21] MEDS: CHOLECALCIFEROL (D3) 1000 UNIT TABLET PO SCH (08:32)
[2021-11-21] MEDS: DOCUSATE SODIUM 100MG CAPSULE PO SCH ×2 (08:32→17:43)
[2021-11-21] MEDS: LIDOCAINE 5% PATCH TOP SCH (08:33)
[2021-11-21] MEDS: DICLOFENAC SODIUM 1% GEL 50GM TOP SCH ×4 (08:33→20:42)
[2021-11-21] MEDS: LACTULOSE 20G/30ML UDC PO PRN (08:43)
[2021-11-21] MEDS: TRAMADOL 50MG TABLET PO PRN (08:43)
[2021-11-21] MEDS: POLYETHYLENE GLYCOL 3350 (17GM) 1 DOSE PACK PO SCH (08:46)
[2021-11-21] MEDS: ASPIRIN 325MG EC TABLET PO SCH (08:52)
[2021-11-21] MEDS: IRON SUCROSE COMPLEX 100 MG/5 ML ML IV SCH (08:52)
[2021-11-21] MEDS: DEXAMETHASONE 4MG TABLET PO SCH (08:52)
[2021-11-21 12:00] VITALS: BP 63/37
[2021-11-21 16:00] VITALS: BP 110/83
[2021-11-21 20:00] VITALS: BP 115/64
[2021-11-21] MEDS: ENOXAPARIN 30MG/0.3ML SYR SUBCUT SCH (21:00)
[2021-11-22] VITALS: BP 120/62
[2021-11-22 07:45] LABS: BASOPHILS % 0.4 % (0.0-2.0); EOSINOPHILS % 1.1 % (0.0-5.0); HEMATOCRIT. 26.8 % (42.0-52.0); HEMOGLOBIN. 8.8 g/dL (14.0-18.0); LYMPHOCYTES % 17.3 % (20.0-50.0); MEAN CORPUSCULAR HEMOGLOBIN 30.8 pg (28.0-32.0); MEAN CORPUSCULAR VOLUME 93.5 fL (80.0-94.0); MEAN PLATELET VOLUME 7.7 fl (7.4-10.4); MONOCYTES % 7.3 % (2.0-8.0); NEUTROPHILS % 73.9 % (40.0-76.0); PLATELET 417 x1000/uL (130-400); RED BLOOD CELL COUNT 2.87 mill/uL (4.7-6.1)
[2021-11-22 08:00] VITALS: BP 129/81
[2021-11-22] MEDS: GUAIFENESIN/DM 600MG/30MG ER TAB 12HR PO SCH ×2 (08:15→20:15)
[2021-11-22] MEDS: DEXAMETHASONE 4MG TABLET PO SCH (08:18)
[2021-11-22] MEDS: SEVELAMER CARBONATE 800 MG TABLET PO SCH ×3 (08:18→18:31)
[2021-11-22] MEDS: DOCUSATE SODIUM 100MG CAPSULE PO SCH ×2 (08:19→18:31)
[2021-11-22] MEDS: DICLOFENAC SODIUM 1% GEL 50GM TOP SCH ×4 (08:20→20:35)
[2021-11-22] MEDS: CHOLECALCIFEROL (D3) 1000 UNIT TABLET PO SCH (08:21)
[2021-11-22] MEDS: FOLIC ACID 1MG TABLET PO SCH (08:21)
[2021-11-22] MEDS: ZINC SULFATE 220 MG ( 50 ) CAPSULE PO SCH (08:22)
[2021-11-22] MEDS: ASCORBIC ACID 500 MG TABLET PO SCH ×2 (08:22→20:34)
[2021-11-22] MEDS: LIDOCAINE 5% PATCH TOP SCH (08:25)
[2021-11-22] MEDS: FAMOTIDINE 20MG TABLET PO SCH (08:37)
[2021-11-22] MEDS: POLYETHYLENE GLYCOL 3350 (17GM) 1 DOSE PACK PO SCH (08:37)
[2021-11-22] MEDS: ASPIRIN 325MG EC TABLET PO SCH (08:38)
[2021-11-22] MEDS: LACTULOSE 20G/30ML UDC PO PRN (08:50)
[2021-11-22 12:00] VITALS: BP 125/78
[2021-11-22 16:00] VITALS: BP 130/88
[2021-11-22] MEDS: ACETAMINOPHEN 325MG TABLET PO PRN (20:35)
[2021-11-22] MEDS: ENOXAPARIN 30MG/0.3ML SYR SUBCUT SCH (20:36)
[2021-11-23] VITALS: BP 91/58
[2021-11-23 04:00] VITALS: BP 109/72
[2021-11-23] MEDS: GUAIFENESIN/DM 600MG/30MG ER TAB 12HR PO SCH ×2 (08:15→20:15)
[2021-11-23] MEDS: SEVELAMER CARBONATE 800 MG TABLET PO SCH ×3 (08:40→18:06)
[2021-11-23] MEDS: ASPIRIN 325MG EC TABLET PO SCH (08:41)
[2021-11-23] MEDS: FOLIC ACID 1MG TABLET PO SCH (08:41)
[2021-11-23] MEDS: DEXAMETHASONE 4MG TABLET PO SCH (08:42)
[2021-11-23] MEDS: CHOLECALCIFEROL (D3) 1000 UNIT TABLET PO SCH (08:42)
[2021-11-23] MEDS: ZINC SULFATE 220 MG ( 50 ) CAPSULE PO SCH (08:42)
[2021-11-23] MEDS: DOCUSATE SODIUM 100MG CAPSULE PO SCH ×2 (08:43→17:00)
[2021-11-23] MEDS: ASCORBIC ACID 500 MG TABLET PO SCH ×2 (08:43→21:00)
[2021-11-23] MEDS: LIDOCAINE 5% PATCH TOP SCH (08:45)
[2021-11-23] MEDS: POLYETHYLENE GLYCOL 3350 (17GM) 1 DOSE PACK PO SCH (08:49)
[2021-11-23] MEDS: FAMOTIDINE 20MG TABLET PO SCH (08:49)
[2021-11-23] MEDS: DICLOFENAC SODIUM 1% GEL 50GM TOP SCH ×3 (08:50→21:00)
[2021-11-23] MEDS ORDERED: TRAMADOL 50MG TABLET PO PRN (09:15)
[2021-11-23] MEDS: TRAMADOL 50MG TABLET PO PRN (16:01)
[2021-11-23 17:43] LABS: PHOSPHORUS 4.8 mg/dL (2.5-4.9)
[2021-11-23 20:00] VITALS: BP 104/64
[2021-11-23] MEDS: ENOXAPARIN 30MG/0.3ML SYR SUBCUT SCH (21:00)
[2021-11-24 04:00] VITALS: BP 103/73
[2021-11-24 07:47] LABS: BASOPHILS % 0.4 % (0.0-2.0); EOSINOPHILS % 1.2 % (0.0-5.0); HEMATOCRIT. 28.2 % (42.0-52.0); HEMOGLOBIN. 9.3 g/dL (14.0-18.0); LYMPHOCYTES % 17.4 % (20.0-50.0); MEAN CORPUSCULAR HEMOGLOBIN 30.8 pg (28.0-32.0); MEAN CORPUSCULAR VOLUME 93.8 fL (80.0-94.0); MEAN PLATELET VOLUME 7.5 fl (7.4-10.4); MONOCYTES % 8.5 % (2.0-8.0); NEUTROPHILS % 72.5 % (40.0-76.0); PLATELET 394 x1000/uL (130-400); RED BLOOD CELL COUNT 3.01 mill/uL (4.7-6.1); RED CELL DISTRIBUTION WIDTH 20.8 % (11.6-14.6)
[2021-11-24 08:00] VITALS: BP 107/67
[2021-11-24] MEDS: GUAIFENESIN/DM 600MG/30MG ER TAB 12HR PO SCH ×2 (08:15→20:15)
[2021-11-24] MEDS: POLYETHYLENE GLYCOL 3350 (17GM) 1 DOSE PACK PO SCH (09:00)
[2021-11-24] MEDS: DICLOFENAC SODIUM 1% GEL 50GM TOP SCH ×4 (09:00→22:11)
[2021-11-24] MEDS: LACTULOSE 20G/30ML UDC PO PRN (09:16)
[2021-11-24] MEDS: ASPIRIN 325MG EC TABLET PO SCH (09:17)
[2021-11-24] MEDS: FAMOTIDINE 20MG TABLET PO SCH (09:18)
[2021-11-24] MEDS: DEXAMETHASONE 4MG TABLET PO SCH (09:18)
[2021-11-24] MEDS: SEVELAMER CARBONATE 800 MG TABLET PO SCH ×3 (09:18→17:29)
[2021-11-24] MEDS: ASCORBIC ACID 500 MG TABLET PO SCH ×2 (09:18→22:09)
[2021-11-24] MEDS: ZINC SULFATE 220 MG ( 50 ) CAPSULE PO SCH (09:18)
[2021-11-24] MEDS: CHOLECALCIFEROL (D3) 1000 UNIT TABLET PO SCH (09:18)
[2021-11-24] MEDS: FOLIC ACID 1MG TABLET PO SCH (09:18)
[2021-11-24] MEDS: DOCUSATE SODIUM 100MG CAPSULE PO SCH ×2 (09:18→17:00)
[2021-11-24] MEDS: LIDOCAINE 5% PATCH TOP SCH (09:19)
[2021-11-24 12:00] VITALS: BP 115/68
[2021-11-24 15:57] VITALS: BP 102/71
[2021-11-24 20:00] VITALS: BP 101/62
[2021-11-24] MEDS: TRAMADOL 50MG TABLET PO PRN (22:10)
[2021-11-24] MEDS: ENOXAPARIN 30MG/0.3ML SYR SUBCUT SCH (22:10)
[2021-11-25] VITALS: BP 108/70
[2021-11-25 04:00] VITALS: BP 107/72
[2021-11-25 08:00] VITALS: BP 119/78
[2021-11-25] MEDS: GUAIFENESIN/DM 600MG/30MG ER TAB 12HR PO SCH ×2 (08:15→20:15)
[2021-11-25] MEDS: TRAMADOL 50MG TABLET PO PRN ×2 (09:26→18:22)
[2021-11-25] MEDS: SEVELAMER CARBONATE 800 MG TABLET PO SCH ×3 (09:27→18:22)
[2021-11-25] MEDS: ZINC SULFATE 220 MG ( 50 ) CAPSULE PO SCH (09:28)
[2021-11-25] MEDS: ASCORBIC ACID 500 MG TABLET PO SCH ×2 (09:28→21:40)
[2021-11-25] MEDS: DOCUSATE SODIUM 100MG CAPSULE PO SCH ×2 (09:29→18:22)
[2021-11-25] MEDS: FOLIC ACID 1MG TABLET PO SCH (09:29)
[2021-11-25] MEDS: LACTULOSE 20G/30ML UDC PO PRN ×2 (09:29→13:25)
[2021-11-25] MEDS: ASPIRIN 325MG EC TABLET PO SCH (09:29)
[2021-11-25] MEDS: FAMOTIDINE 20MG TABLET PO SCH (09:29)
[2021-11-25] MEDS: CHOLECALCIFEROL (D3) 1000 UNIT TABLET PO SCH (09:29)
[2021-11-25] MEDS: LIDOCAINE 5% PATCH TOP SCH (09:30)
[2021-11-25] MEDS: POLYETHYLENE GLYCOL 3350 (17GM) 1 DOSE PACK PO SCH (09:30)
[2021-11-25] MEDS: DEXAMETHASONE 4MG TABLET PO SCH (09:30)
[2021-11-25] MEDS: DICLOFENAC SODIUM 1% GEL 50GM TOP SCH ×4 (09:31→21:41)
[2021-11-25 12:00] VITALS: BP 96/69
[2021-11-25 16:00] VITALS: BP 122/82
[2021-11-25] MEDS: ENOXAPARIN 30MG/0.3ML SYR SUBCUT SCH (21:00)
[2021-11-26] MEDS: POLYETHYLENE GLYCOL 3350 (17GM) 1 DOSE PACK PO SCH (09:00)
[2021-11-26] MEDS: LACTULOSE 20G/30ML UDC PO PRN ×2 (10:06→17:17)
[2021-11-26] MEDS: LIDOCAINE 5% PATCH TOP SCH (10:06)
[2021-11-26] MEDS: SEVELAMER CARBONATE 800 MG TABLET PO SCH ×3 (10:06→17:17)
[2021-11-26] MEDS: DEXAMETHASONE 4MG TABLET PO SCH (10:07)
[2021-11-26] MEDS: ZINC SULFATE 220 MG ( 50 ) CAPSULE PO SCH (10:07)
[2021-11-26] MEDS: ASPIRIN 325MG EC TABLET PO SCH (10:07)
[2021-11-26] MEDS: FOLIC ACID 1MG TABLET PO SCH (10:07)
[2021-11-26] MEDS: DOCUSATE SODIUM 100MG CAPSULE PO SCH ×2 (10:07→17:18)
[2021-11-26] MEDS: CHOLECALCIFEROL (D3) 1000 UNIT TABLET PO SCH (10:07)
[2021-11-26] MEDS: TRAMADOL 50MG TABLET PO PRN ×2 (10:07→17:17)
[2021-11-26] MEDS: FAMOTIDINE 20MG TABLET PO SCH (10:07)
[2021-11-26] MEDS: DICLOFENAC SODIUM 1% GEL 50GM TOP SCH ×4 (10:08→20:45)
[2021-11-26 20:00] VITALS: BP 127/65
[2021-11-26] MEDS: ENOXAPARIN 30MG/0.3ML SYR SUBCUT SCH (20:44)
[2021-11-27 08:00] VITALS: BP 103/63
[2021-11-27] MEDS: FOLIC ACID 1MG TABLET PO SCH (08:54)
[2021-11-27] MEDS: DOCUSATE SODIUM 100MG CAPSULE PO SCH ×2 (08:54→17:00)
[2021-11-27] MEDS: POLYETHYLENE GLYCOL 3350 (17GM) 1 DOSE PACK PO SCH (08:55)
[2021-11-27] MEDS: DEXAMETHASONE 4MG TABLET PO SCH (08:55)
[2021-11-27] MEDS: LIDOCAINE 5% PATCH TOP SCH (08:56)
[2021-11-27] MEDS: DICLOFENAC SODIUM 1% GEL 50GM TOP SCH ×4 (08:57→21:00)
[2021-11-27] MEDS: TRAMADOL 50MG TABLET PO PRN (09:09)
[2021-11-27] MEDS: LACTULOSE 20G/30ML UDC PO PRN (09:09)
[2021-11-27 12:00] VITALS: BP 102/69
[2021-11-27] MEDS: SEVELAMER CARBONATE 800 MG TABLET PO SCH ×2 (13:23→18:09)
[2021-11-27 16:00] VITALS: BP 114/74
[2021-11-27] MEDS: ENOXAPARIN 30MG/0.3ML SYR SUBCUT SCH (21:00)
[2021-11-28 08:00] VITALS: BP 116/76
[2021-11-28] MEDS: SEVELAMER CARBONATE 800 MG TABLET PO SCH ×3 (08:30→17:33)
[2021-11-28] MEDS: POLYETHYLENE GLYCOL 3350 (17GM) 1 DOSE PACK PO SCH (08:30)
[2021-11-28] MEDS: FOLIC ACID 1MG TABLET PO SCH (08:31)
[2021-11-28] MEDS: DOCUSATE SODIUM 100MG CAPSULE PO SCH ×2 (08:31→17:00)
[2021-11-28] MEDS: DICLOFENAC SODIUM 1% GEL 50GM TOP SCH ×5 (08:31→21:00)
[2021-11-28] MEDS: LIDOCAINE 5% PATCH TOP SCH (08:32)
[2021-11-28] MEDS: TRAMADOL 50MG TABLET PO PRN (08:32)
[2021-11-28 08:41] LABS: BASOPHILS % 0.6 % (0.0-2.0); EOSINOPHILS % 2.3 % (0.0-5.0); HEMATOCRIT. 28.2 % (42.0-52.0); HEMOGLOBIN. 9.2 g/dL (14.0-18.0); LYMPHOCYTES % 12.5 % (20.0-50.0); MEAN CORPUSCULAR HEMOGLOBIN 31.7 pg (28.0-32.0); MEAN CORPUSCULAR VOLUME 96.9 fL (80.0-94.0); MEAN PLATELET VOLUME 7.7 fl (7.4-10.4); MONOCYTES % 10.8 % (2.0-8.0); NEUTROPHILS % 73.8 % (40.0-76.0); PLATELET 303 x1000/uL (130-400); RED BLOOD CELL COUNT 2.91 mill/uL (4.7-6.1); RED CELL DISTRIBUTION WIDTH 23.2 % (11.6-14.6)
[2021-11-28] MEDS: LACTULOSE 20G/30ML UDC PO PRN (08:42)
[2021-11-28] MEDS ORDERED: SODIUM POLYSTYRENE SULFONATE 15 G/60 ML BOT PO NR (09:15)
[2021-11-28 12:00] VITALS: BP 113/60
[2021-11-28 13:50] LABS: PLATELET ESTIMATE NORMAL
[2021-11-28 16:00] VITALS: BP 100/61
[2021-11-28 20:00] VITALS: BP 92/48
[2021-11-28] MEDS: ENOXAPARIN 30MG/0.3ML SYR SUBCUT SCH (21:00)
[2021-11-29] VITALS: BP 96/60
[2021-11-29 08:00] VITALS: BP 94/59
[2021-11-29] MEDS: FOLIC ACID 1MG TABLET PO SCH (08:44)
[2021-11-29] MEDS: SEVELAMER CARBONATE 800 MG TABLET PO SCH ×3 (08:44→17:42)
[2021-11-29] MEDS: LACTULOSE 20G/30ML UDC PO PRN (08:44)
[2021-11-29] MEDS: DOCUSATE SODIUM 100MG CAPSULE PO SCH ×2 (08:44→17:00)
[2021-11-29] MEDS: DICLOFENAC SODIUM 1% GEL 50GM TOP SCH ×4 (08:48→21:00)
[2021-11-29] MEDS: LIDOCAINE 5% PATCH TOP SCH (08:48)
[2021-11-29] MEDS: POLYETHYLENE GLYCOL 3350 (17GM) 1 DOSE PACK PO SCH (08:48)
[2021-11-29 12:00] VITALS: BP 105/69
[2021-11-29] MEDS: TRAMADOL 50MG TABLET PO PRN (12:48)
[2021-11-29 16:00] VITALS: BP 95/61
[2021-11-29 20:00] VITALS: BP 98/61
[2021-11-29] MEDS: ENOXAPARIN 30MG/0.3ML SYR SUBCUT SCH (21:00)
[2021-11-30 06:44] LABS: BASOPHILS % 0.5 % (0.0-2.0); EOSINOPHILS % 2.1 % (0.0-5.0); HEMATOCRIT. 27.3 % (42.0-52.0); HEMOGLOBIN. 8.8 g/dL (14.0-18.0); LYMPHOCYTES % 16.2 % (20.0-50.0); MEAN CORPUSCULAR HEMOGLOBIN 31.3 pg (28.0-32.0); MEAN CORPUSCULAR VOLUME 96.5 fL (80.0-94.0); MEAN PLATELET VOLUME 8.1 fl (7.4-10.4); MONOCYTES % 12.8 % (2.0-8.0); NEUTROPHILS % 68.4 % (40.0-76.0); PLATELET 281 x1000/uL (130-400); RED BLOOD CELL COUNT 2.82 mill/uL (4.7-6.1)
[2021-11-30 07:10] LABS: PHOSPHORUS 6.7 mg/dL (2.5-4.9)
[2021-11-30 08:00] VITALS: BP 113/71
[2021-11-30] MEDS: LIDOCAINE 5% PATCH TOP SCH (08:38)
[2021-11-30] MEDS: DOCUSATE SODIUM 100MG CAPSULE PO SCH ×2 (08:41→16:55)
[2021-11-30] MEDS: FOLIC ACID 1MG TABLET PO SCH (08:41)
[2021-11-30] MEDS: SEVELAMER CARBONATE 800 MG TABLET PO SCH ×3 (08:41→17:41)
[2021-11-30] MEDS: DICLOFENAC SODIUM 1% GEL 50GM TOP SCH ×4 (08:42→21:00)
[2021-11-30] MEDS: POLYETHYLENE GLYCOL 3350 (17GM) 1 DOSE PACK PO SCH (08:46)
[2021-11-30] MEDS: TRAMADOL 50MG TABLET PO PRN (08:50)
[2021-11-30] MEDS: LACTULOSE 20G/30ML UDC PO PRN (08:50)
[2021-11-30] MEDS ORDERED: SODIUM POLYSTYRENE SULFONATE 15 G/60 ML BOT PO SCH (10:00)
[2021-11-30 12:00] VITALS: BP 97/64
[2021-11-30] MEDS: CALCIUM 1250MG TABLET (500MG ELEMENTAL CALCIUM) PO SCH ×2 (12:50→17:41)
[2021-11-30 12:59] LABS: BASOPHILS % 0.9 % (0.0-2.0); EOSINOPHILS % 1.7 % (0.0-5.0); HEMATOCRIT. 28.5 % (42.0-52.0); HEMOGLOBIN. 8.6 g/dL (14.0-18.0); LYMPHOCYTES % 13.7 % (20.0-50.0); MEAN CORPUSCULAR HEMOGLOBIN 30.3 pg (28.0-32.0); MEAN CORPUSCULAR VOLUME 100.8 fL (80.0-94.0); MEAN PLATELET VOLUME 7.5 fl (7.4-10.4); MONOCYTES % 11.3 % (2.0-8.0); NEUTROPHILS % 72.4 % (40.0-76.0); PLATELET 308 x1000/uL (130-400); RED BLOOD CELL COUNT 2.83 mill/uL (4.7-6.1); RED CELL DISTRIBUTION WIDTH 22.7 % (11.6-14.6)
[2021-11-30 16:00] VITALS: BP 106/77
[2021-11-30 20:00] VITALS: BP 99/57
[2021-11-30] MEDS: ENOXAPARIN 30MG/0.3ML SYR SUBCUT SCH (21:00)
[2021-12-01] VITALS: BP 101/57
[2021-12-01 04:00] VITALS: BP 108/63
[2021-12-01] MEDS: CALCIUM 1250MG TABLET (500MG ELEMENTAL CALCIUM) PO SCH ×3 (07:50→17:50)
[2021-12-01 08:00] VITALS: BP 97/64
[2021-12-01] MEDS: POLYETHYLENE GLYCOL 3350 (17GM) 1 DOSE PACK PO SCH (08:47)
[2021-12-01] MEDS: LACTULOSE 20G/30ML UDC PO PRN (09:00)
[2021-12-01] MEDS: FOLIC ACID 1MG TABLET PO SCH (09:00)
[2021-12-01] MEDS: LIDOCAINE 5% PATCH TOP SCH (09:00)
[2021-12-01] MEDS: DICLOFENAC SODIUM 1% GEL 50GM TOP SCH ×4 (09:00→21:00)
[2021-12-01] MEDS: SEVELAMER CARBONATE 800 MG TABLET PO SCH ×3 (09:00→18:27)
[2021-12-01] MEDS: TRAMADOL 50MG TABLET PO PRN ×2 (09:01→18:28)
[2021-12-01] MEDS: DOCUSATE SODIUM 100MG CAPSULE PO SCH ×2 (09:01→17:00)
[2021-12-01 12:00] VITALS: BP 106/72
[2021-12-01 16:00] VITALS: BP 92/62
[2021-12-01 20:00] VITALS: BP 99/60
[2021-12-01] MEDS: ENOXAPARIN 30MG/0.3ML SYR SUBCUT SCH (21:00)
[2021-12-02] VITALS: BP 123/76
[2021-12-02 04:00] VITALS: BP 96/57
[2021-12-02] MEDS: CALCIUM 1250MG TABLET (500MG ELEMENTAL CALCIUM) PO SCH ×3 (06:55→17:26)
[2021-12-02 08:00] VITALS: BP 105/66
[2021-12-02] MEDS: LIDOCAINE 5% PATCH TOP SCH (09:00)
[2021-12-02] MEDS: FOLIC ACID 1MG TABLET PO SCH (09:00)
[2021-12-02] MEDS: DICLOFENAC SODIUM 1% GEL 50GM TOP SCH ×3 (09:00→17:00)
[2021-12-02] MEDS: DOCUSATE SODIUM 100MG CAPSULE PO SCH ×2 (09:00→17:00)
[2021-12-02] MEDS: POLYETHYLENE GLYCOL 3350 (17GM) 1 DOSE PACK PO SCH (09:00)
[2021-12-02] MEDS: SEVELAMER CARBONATE 800 MG TABLET PO SCH ×3 (09:17→17:26)
[2021-12-02] MEDS: LACTULOSE 20G/30ML UDC PO PRN (09:17)
[2021-12-02] MEDS: TRAMADOL 50MG TABLET PO PRN (09:18)
[2021-12-02 12:00] VITALS: BP 91/55
[2021-12-02 16:00] VITALS: BP 123/84
[2021-12-02] MEDS ORDERED: METHYLPREDNISOLONE ACETATE 40MG/ML VIAL IM NR (18:00)
[2021-12-02] MEDS ORDERED: LIDOCAINE HCL 1% 10 MG/ML 10ML VIAL IJ NR (18:00)
[2021-12-02 19:59] LABS: HEMATOCRIT 26.9 % (42.0-52.0); HEMOGLOBIN 8.8 g/dL (14.0-18.0); MEAN CORPUSCULAR HEMOGLOBIN 31.2 pg (28.0-32.0); MEAN CORPUSCULAR VOLUME 95.4 fL (80.0-94.0); PLATELET 275 x1000/uL (130-400); RED BLOOD CELL COUNT 2.82 mill/uL (4.7-6.1); RED CELL DISTRIBUTION WIDTH 20.9 % (11.6-14.6)
[2021-12-02 20:00] VITALS: BP 116/73
[2021-12-03] VITALS: BP 112/70
[2021-12-03 04:00] VITALS: BP 97/62
[2021-12-03 07:15] LABS: HEMATOCRIT. 26.9 % (42.0-52.0); HEMOGLOBIN. 8.8 g/dL (14.0-18.0); MEAN CORPUSCULAR HEMOGLOBIN 30.7 pg (28.0-32.0); MEAN CORPUSCULAR VOLUME 94.2 fL (80.0-94.0); MEAN PLATELET VOLUME 7.9 fl (7.4-10.4); PLATELET 289 x1000/uL (130-400); RED BLOOD CELL COUNT 2.86 mill/uL (4.7-6.1); RED CELL DISTRIBUTION WIDTH 20.7 % (11.6-14.6)
[2021-12-03 08:00] VITALS: BP 128/82
[2021-12-03] MEDS: POLYETHYLENE GLYCOL 3350 (17GM) 1 DOSE PACK PO SCH (08:25)
[2021-12-03] MEDS: DICLOFENAC SODIUM 1% GEL 50GM TOP SCH ×4 (08:26→21:00)
[2021-12-03] MEDS: SEVELAMER CARBONATE 800 MG TABLET PO SCH ×3 (09:00→17:31)
[2021-12-03] MEDS: CALCIUM 1250MG TABLET (500MG ELEMENTAL CALCIUM) PO SCH ×3 (09:00→17:32)
[2021-12-03] MEDS: FOLIC ACID 1MG TABLET PO SCH (09:00)
[2021-12-03] MEDS ORDERED: PREDNISONE 10MG TABLET PO SCH (09:00)
[2021-12-03] MEDS ORDERED: COLCHICINE 0.6MG TABLET PO SCH (09:00)
[2021-12-03] MEDS: TRAMADOL 50MG TABLET PO PRN (09:01)
[2021-12-03] MEDS: LIDOCAINE 5% PATCH TOP SCH (09:01)
[2021-12-03] MEDS: LACTULOSE 20G/30ML UDC PO PRN ×2 (09:01→17:35)
[2021-12-03 09:45] LABS: PLATELET ESTIMATE NORMAL
[2021-12-03 12:00] VITALS: BP 95/52
[2021-12-03 16:00] VITALS: BP 105/55
[2021-12-03 20:00] VITALS: BP 123/89
[2021-12-03] MEDS: ENOXAPARIN 30MG/0.3ML SYR SUBCUT SCH (21:00)
[2021-12-03] MEDS: PANTOPRAZOLE SODIUM 40 MG/VIAL IV SCH (22:00)
[2021-12-04] VITALS: BP 128/82
[2021-12-04] MEDS: CALCIUM 1250MG TABLET (500MG ELEMENTAL CALCIUM) PO SCH ×3 (06:21→17:09)
[2021-12-04 08:00] VITALS: BP 114/72
[2021-12-04] MEDS: PANTOPRAZOLE SODIUM 40 MG/VIAL IV SCH (08:18)
[2021-12-04] MEDS: TRAMADOL 50MG TABLET PO PRN ×2 (08:56→22:23)
[2021-12-04] MEDS: SEVELAMER CARBONATE 800 MG TABLET PO SCH ×3 (08:56→17:14)
[2021-12-04] MEDS: DICLOFENAC SODIUM 1% GEL 50GM TOP SCH ×4 (08:57→20:22)
[2021-12-04] MEDS: LIDOCAINE 5% PATCH TOP SCH (08:57)
[2021-12-04] MEDS: LACTULOSE 20G/30ML UDC PO PRN (08:57)
[2021-12-04] MEDS: CINACALCET HCL 30MG TABLET PO SCH (08:57)
[2021-12-04 12:00] VITALS: BP 121/85
[2021-12-04 16:00] VITALS: BP 112/65
[2021-12-04 17:51] LABS: BASOPHILS % 0.8 % (0.0-2.0); EOSINOPHILS % 1.8 % (0.0-5.0); HEMATOCRIT. 27.4 % (42.0-52.0); LYMPHOCYTES % 15.7 % (20.0-50.0); MEAN CORPUSCULAR HEMOGLOBIN 30.8 pg (28.0-32.0); MEAN PLATELET VOLUME 7.9 fl (7.4-10.4); MONOCYTES % 10.1 % (2.0-8.0); NEUTROPHILS % 71.6 % (40.0-76.0); PLATELET 334 x1000/uL (130-400); RED BLOOD CELL COUNT 2.92 mill/uL (4.7-6.1); RED CELL DISTRIBUTION WIDTH 20.8 % (11.6-14.6)
[2021-12-04 18:30] LABS: HEPATITIS B SURFACE ANTIGEN NEGATIVE
[2021-12-04 20:00] VITALS: BP 173/118
[2021-12-04] MEDS: ENOXAPARIN 30MG/0.3ML SYR SUBCUT SCH (20:20)
[2021-12-05] MEDS: CALCIUM 1250MG TABLET (500MG ELEMENTAL CALCIUM) PO SCH ×3 (07:50→15:15)
[2021-12-05 08:00] VITALS: BP 113/78
[2021-12-05 08:45] LABS: BASOPHILS % 0.8 % (0.0-2.0); EOSINOPHILS % 2.3 % (0.0-5.0); HEMATOCRIT. 24.9 % (42.0-52.0); HEMOGLOBIN. 8.3 g/dL (14.0-18.0); LYMPHOCYTES % 19.6 % (20.0-50.0); MEAN CORPUSCULAR HEMOGLOBIN 31.2 pg (28.0-32.0); MEAN PLATELET VOLUME 7.7 fl (7.4-10.4); MONOCYTES % 10.5 % (2.0-8.0); NEUTROPHILS % 66.8 % (40.0-76.0); PLATELET 308 x1000/uL (130-400); RED BLOOD CELL COUNT 2.65 mill/uL (4.7-6.1); RED CELL DISTRIBUTION WIDTH 20.3 % (11.6-14.6)
[2021-12-05] MEDS: LIDOCAINE 5% PATCH TOP SCH (09:00)
[2021-12-05] MEDS: DICLOFENAC SODIUM 1% GEL 50GM TOP SCH ×4 (09:00→21:00)
[2021-12-05] MEDS: LACTULOSE 20G/30ML UDC PO PRN ×2 (09:08→15:11)
[2021-12-05] MEDS: PANTOPRAZOLE SODIUM 40 MG/VIAL IV SCH (09:08)
[2021-12-05] MEDS: CINACALCET HCL 30MG TABLET PO SCH (09:09)
[2021-12-05] MEDS: SEVELAMER CARBONATE 800 MG TABLET PO SCH ×3 (09:09→20:15)
[2021-12-05] MEDS: PREDNISONE 10MG TABLET PO SCH (09:09)
[2021-12-05] MEDS: COLCHICINE 0.6MG TABLET PO SCH (09:09)
[2021-12-05] MEDS: TRAMADOL 50MG TABLET PO PRN (09:15)
[2021-12-05 12:00] VITALS: BP 96/55
[2021-12-05 16:00] VITALS: BP 127/81
[2021-12-05 20:00] VITALS: BP 131/80
[2021-12-05] MEDS: ENOXAPARIN 30MG/0.3ML SYR SUBCUT SCH (21:00)
[2021-12-06] VITALS: BP 129/76
[2021-12-06 04:00] VITALS: BP 125/83
[2021-12-06] MEDS: CINACALCET HCL 30MG TABLET PO SCH (07:50)
[2021-12-06] MEDS: CALCIUM 1250MG TABLET (500MG ELEMENTAL CALCIUM) PO SCH ×3 (07:50→17:50)
[2021-12-06 08:00] VITALS: BP 132/89
[2021-12-06] MEDS: LIDOCAINE 5% PATCH TOP SCH (09:00)
[2021-12-06] MEDS: DICLOFENAC SODIUM 1% GEL 50GM TOP SCH ×3 (09:00→17:00)
[2021-12-06] MEDS: PANTOPRAZOLE SODIUM 40 MG/VIAL IV SCH (09:00)
[2021-12-06] MEDS: TRAMADOL 50MG TABLET PO PRN (09:02)
[2021-12-06] MEDS: SEVELAMER CARBONATE 800 MG TABLET PO SCH ×3 (09:02→17:10)
[2021-12-06] MEDS: LACTULOSE 20G/30ML UDC PO PRN (09:02)
[2021-12-06 12:00] VITALS: BP 109/72
[2021-12-06 16:00] VITALS: BP 113/72
[2021-12-06 20:00] VITALS: BP 116/75
[2021-12-06] MEDS: ENOXAPARIN 30MG/0.3ML SYR SUBCUT SCH (20:50)
[2021-12-07] VITALS: BP 129/80
[2021-12-07 04:00] VITALS: BP 112/80
[2021-12-07] MEDS: CINACALCET HCL 30MG TABLET PO SCH (07:50)
[2021-12-07] MEDS: CALCIUM 1250MG TABLET (500MG ELEMENTAL CALCIUM) PO SCH ×3 (07:50→17:50)
[2021-12-07 08:00] VITALS: BP 110/69
[2021-12-07] MEDS: SEVELAMER CARBONATE 800 MG TABLET PO SCH ×3 (08:19→18:06)
[2021-12-07] MEDS: LACTULOSE 20G/30ML UDC PO PRN (08:19)
[2021-12-07] MEDS: TRAMADOL 50MG TABLET PO PRN ×2 (08:20→14:32)
[2021-12-07] MEDS: PANTOPRAZOLE SODIUM 40 MG/VIAL IV SCH (08:23)
[2021-12-07] MEDS: PREDNISONE 10MG TABLET PO SCH (08:24)
[2021-12-07] MEDS: COLCHICINE 0.6MG TABLET PO SCH (08:24)
[2021-12-07 09:53] LABS: BASOPHILS % 0.9 % (0.0-2.0); EOSINOPHILS % 2.6 % (0.0-5.0); HEMATOCRIT. 30.3 % (42.0-52.0); HEMOGLOBIN. 9.9 g/dL (14.0-18.0); LYMPHOCYTES % 20.4 % (20.0-50.0); MEAN CORPUSCULAR VOLUME 94.4 fL (80.0-94.0); MEAN PLATELET VOLUME 7.5 fl (7.4-10.4); MONOCYTES % 5.5 % (2.0-8.0); NEUTROPHILS % 70.6 % (40.0-76.0); PLATELET 378 x1000/uL (130-400); RED BLOOD CELL COUNT 3.21 mill/uL (4.7-6.1); RED CELL DISTRIBUTION WIDTH 20.3 % (11.6-14.6)
[2021-12-07 12:00] VITALS: BP 119/84
[2021-12-07 16:00] VITALS: BP 106/77
[2021-12-07] MEDS: ENOXAPARIN 30MG/0.3ML SYR SUBCUT SCH (21:00)
[2021-12-08] VITALS: BP 114/56
[2021-12-08 04:00] VITALS: BP 134/56
[2021-12-08] MEDS: CALCIUM 1250MG TABLET (500MG ELEMENTAL CALCIUM) PO SCH ×3 (07:50→17:24)
[2021-12-08] MEDS: CINACALCET HCL 30MG TABLET PO SCH (07:50)
[2021-12-08 08:00] VITALS: BP 111/77
[2021-12-08] MEDS: SEVELAMER CARBONATE 800 MG TABLET PO SCH ×3 (08:29→17:24)
[2021-12-08] MEDS: TRAMADOL 50MG TABLET PO PRN ×2 (08:29→17:24)
[2021-12-08] MEDS: LACTULOSE 20G/30ML UDC PO PRN (08:29)
[2021-12-08] MEDS: PANTOPRAZOLE SODIUM 40 MG/VIAL IV SCH (08:30)
[2021-12-08 12:00] VITALS: BP 124/87
[2021-12-08 16:00] VITALS: BP 126/88
[2021-12-08 20:00] VITALS: BP 126/83
[2021-12-08] MEDS: ENOXAPARIN 30MG/0.3ML SYR SUBCUT SCH (21:00)
[2021-12-09] VITALS: BP 116/78
[2021-12-09 04:00] VITALS: BP 103/70
[2021-12-09] MEDS: CALCIUM 1250MG TABLET (500MG ELEMENTAL CALCIUM) PO SCH ×3 (07:50→17:50)
[2021-12-09] MEDS: CINACALCET HCL 30MG TABLET PO SCH (07:50)
[2021-12-09 08:30] VITALS: BP_SYST 88
[2021-12-09] MEDS: PANTOPRAZOLE SODIUM 40 MG/VIAL IV SCH (09:00)
[2021-12-09] MEDS: PREDNISONE 10MG TABLET PO SCH (09:00)
[2021-12-09] MEDS: COLCHICINE 0.6MG TABLET PO SCH (09:00)
[2021-12-09] MEDS: SEVELAMER CARBONATE 800 MG TABLET PO SCH ×3 (09:56→18:25)
[2021-12-09] MEDS: TRAMADOL 50MG TABLET PO PRN ×6 (09:59→18:57)
[2021-12-09 12:00] VITALS: BP_SYST 80
[2021-12-09 16:00] VITALS: BP_SYST 68
[2021-12-09 19:34] VITALS: BP 110/76
[2021-12-09] MEDS: ENOXAPARIN 30MG/0.3ML SYR SUBCUT SCH (21:00)
[2021-12-10 00:40] VITALS: BP 120/80
[2021-12-10] MEDS: PANTOPRAZOLE SODIUM 40 MG/VIAL IV SCH (08:26)
[2021-12-10] MEDS: SEVELAMER CARBONATE 800 MG TABLET PO SCH ×3 (08:31→17:45)
[2021-12-10] MEDS: CALCIUM 1250MG TABLET (500MG ELEMENTAL CALCIUM) PO SCH ×3 (08:31→17:45)
[2021-12-10] MEDS: CINACALCET HCL 30MG TABLET PO SCH (08:31)
[2021-12-10 09:30] VITALS: BP 117/63
[2021-12-10 10:07] LABS: BASOPHILS % 0.8 % (0.0-2.0); EOSINOPHILS % 2.3 % (0.0-5.0); HEMATOCRIT. 35.2 % (42.0-52.0); HEMOGLOBIN. 10.6 g/dL (14.0-18.0); LYMPHOCYTES % 22.8 % (20.0-50.0); MEAN CORPUSCULAR HEMOGLOBIN 30.9 pg (28.0-32.0); MEAN CORPUSCULAR VOLUME 102.8 fL (80.0-94.0); MONOCYTES % 7.7 % (2.0-8.0); NEUTROPHILS % 66.4 % (40.0-76.0); PLATELET 387 x1000/uL (130-400); RED BLOOD CELL COUNT 3.43 mill/uL (4.7-6.1); RED CELL DISTRIBUTION WIDTH 22.6 % (11.6-14.6)
[2021-12-10 10:33] LABS: PLATELET ESTIMATE NORMAL
[2021-12-10 12:23] LABS: PHOSPHORUS 5.3 mg/dL (2.5-4.9)
[2021-12-10] MEDS: ENOXAPARIN 30MG/0.3ML SYR SUBCUT SCH (21:00)
[2021-12-11 04:00] VITALS: BP 111/72
[2021-12-11] MEDS: CALCIUM 1250MG TABLET (500MG ELEMENTAL CALCIUM) PO SCH ×3 (07:50→17:50)
[2021-12-11] MEDS: PANTOPRAZOLE SODIUM 40 MG/VIAL IV SCH (09:00)
[2021-12-11] MEDS: SEVELAMER CARBONATE 800 MG TABLET PO SCH ×3 (10:24→18:03)
[2021-12-11] MEDS: CINACALCET HCL 30MG TABLET PO SCH (10:25)
[2021-12-11] MEDS: COLCHICINE 0.6MG TABLET PO SCH (10:25)
[2021-12-11] MEDS: PREDNISONE 10MG TABLET PO SCH (10:25)
[2021-12-11] MEDS ORDERED: LACTULOSE 20G/30ML UDC PO NR (13:30)
[2021-12-11] MEDS ORDERED: TRAMADOL 50MG TABLET PO PRN (13:30)
[2021-12-11] MEDS ORDERED: NALOXONE HCL 0.4MG/ML VIAL IV PRN (17:45)
[2021-12-12] MEDS ORDERED: POLYETHYLENE GLYCOL 3350 (17GM) 1 DOSE PACK PO SCH (09:00)
== END 2021-12-11 21:52 | DRG 871 ==
LOC: ER 13:51 → MICUSO 18:46 → 7WST 10-29 05:02 → 6EST 11-08 22:12
PROVIDERS: ADMIT Internal Medicine; ATTEND Internal Medicine
PROC: 5A1D70Z Performance of Urinary Filtration, Intermittent, Less than 6 Hours Per Day (ICD-10-PCS; 2021-10-29)
PROC: 5A1D70Z Performance of Urinary Filtration, Intermittent, Less than 6 Hours Per Day (ICD-10-PCS; 2021-10-31)
PROC: 5A1D70Z Performance of Urinary Filtration, Intermittent, Less than 6 Hours Per Day (ICD-10-PCS; 2021-11-02)
PROC: 5A1D70Z Performance of Urinary Filtration, Intermittent, Less than 6 Hours Per Day (ICD-10-PCS; 2021-11-04)
PROC: 0S9C3ZZ Drainage of Right Knee Joint, Percutaneous Approach (ICD-10-PCS; principal; 2021-11-06)
PROC: 5A1D70Z Performance of Urinary Filtration, Intermittent, Less than 6 Hours Per Day (ICD-10-PCS; 2021-11-06)
PROC: 5A1D70Z Performance of Urinary Filtration, Intermittent, Less than 6 Hours Per Day (ICD-10-PCS; 2021-11-07)
PROC: 30233N1 Transfusion of Nonautologous Red Blood Cells into Peripheral Vein, Percutaneous Approach (ICD-10-PCS; 2021-11-09)
PROC: 5A1D70Z Performance of Urinary Filtration, Intermittent, Less than 6 Hours Per Day (ICD-10-PCS; 2021-11-09)
PROC: 5A1D70Z Performance of Urinary Filtration, Intermittent, Less than 6 Hours Per Day (ICD-10-PCS; 2021-11-11)
PROC: 5A1D70Z Performance of Urinary Filtration, Intermittent, Less than 6 Hours Per Day (ICD-10-PCS; 2021-11-13)
PROC: 5A1D70Z Performance of Urinary Filtration, Intermittent, Less than 6 Hours Per Day (ICD-10-PCS; 2021-11-16)
PROC: 5A1D70Z Performance of Urinary Filtration, Intermittent, Less than 6 Hours Per Day (ICD-10-PCS; 2021-11-18)
PROC: 5A1D70Z Performance of Urinary Filtration, Intermittent, Less than 6 Hours Per Day (ICD-10-PCS; 2021-11-20)
PROC: 5A1D70Z Performance of Urinary Filtration, Intermittent, Less than 6 Hours Per Day (ICD-10-PCS; 2021-11-22)
PROC: 5A1D70Z Performance of Urinary Filtration, Intermittent, Less than 6 Hours Per Day (ICD-10-PCS; 2021-11-24)
PROC: 5A1D70Z Performance of Urinary Filtration, Intermittent, Less than 6 Hours Per Day (ICD-10-PCS; 2021-11-26)
PROC: 5A1D70Z Performance of Urinary Filtration, Intermittent, Less than 6 Hours Per Day (ICD-10-PCS; 2021-11-28)
PROC: 5A1D70Z Performance of Urinary Filtration, Intermittent, Less than 6 Hours Per Day (ICD-10-PCS; 2021-12-01)
PROC: 0S9D3ZZ Drainage of Left Knee Joint, Percutaneous Approach (ICD-10-PCS; 2021-12-02)
PROC: 5A1D70Z Performance of Urinary Filtration, Intermittent, Less than 6 Hours Per Day (ICD-10-PCS; 2021-12-03)
PROC: 5A1D70Z Performance of Urinary Filtration, Intermittent, Less than 6 Hours Per Day (ICD-10-PCS; 2021-12-05)
PROC: 0HBRXZZ Excision of Toe Nail, External Approach (ICD-10-PCS; 2021-12-07)
PROC: 0HBRXZZ Excision of Toe Nail, External Approach (ICD-10-PCS; 2021-12-07)
PROC: 0HBRXZZ Excision of Toe Nail, External Approach (ICD-10-PCS; 2021-12-07)
PROC: 0HBRXZZ Excision of Toe Nail, External Approach (ICD-10-PCS; 2021-12-07)
PROC: 0HBRXZZ Excision of Toe Nail, External Approach (ICD-10-PCS; 2021-12-07)
PROC: 0HBRXZZ Excision of Toe Nail, External Approach (ICD-10-PCS; 2021-12-07)
PROC: 0HBRXZZ Excision of Toe Nail, External Approach (ICD-10-PCS; 2021-12-07)
PROC: 0HBRXZZ Excision of Toe Nail, External Approach (ICD-10-PCS; 2021-12-07)
PROC: 0HBRXZZ Excision of Toe Nail, External Approach (ICD-10-PCS; 2021-12-07)
PROC: 0HBRXZZ Excision of Toe Nail, External Approach (ICD-10-PCS; 2021-12-07)
PROC: 5A1D70Z Performance of Urinary Filtration, Intermittent, Less than 6 Hours Per Day (ICD-10-PCS; 2021-12-08)
PROC: 5A1D70Z Performance of Urinary Filtration, Intermittent, Less than 6 Hours Per Day (ICD-10-PCS; 2021-12-10)
DX: A41.89 Other specified sepsis (principal); E43 Unspecified severe protein-calorie malnutrition; J12.82 Pneumonia due to coronavirus disease 2019; U07.1 COVID-19; N18.6 End stage renal disease; E87.1 Hypo-osmolality and hyponatremia; I13.2 Hypertensive heart and chronic kidney disease with heart failure and with stage 5 chronic kidney disease, or end stage renal disease; N25.81 Secondary hyperparathyroidism of renal origin; N11.1 Chronic obstructive pyelonephritis; Q62.39 Other obstructive defects of renal pelvis and ureter; I50.20 Unspecified systolic (congestive) heart failure; N17.9 Acute kidney failure, unspecified; D63.8 Anemia in other chronic diseases classified elsewhere; E83.51 Hypocalcemia; Z99.2 Dependence on renal dialysis; Z91.15 Patient's noncompliance with renal dialysis; N25.0 Renal osteodystrophy; M1A.9XX1 Chronic gout, unspecified, with tophus (tophi); K21.9 Gastro-esophageal reflux disease without esophagitis; E83.39 Other disorders of phosphorus metabolism; E87.5 Hyperkalemia; E89.0 Postprocedural hypothyroidism; M17.0 Bilateral primary osteoarthritis of knee; D64.9 Anemia, unspecified; R94.31 Abnormal electrocardiogram [ECG] [EKG]; L89.90 Pressure ulcer of unspecified site, unspecified stage; B35.1 Tinea unguium; R53.81 Other malaise; K76.0 Fatty (change of) liver, not elsewhere classified; K83.8 Other specified diseases of biliary tract; M19.011 Primary osteoarthritis, right shoulder; M19.012 Primary osteoarthritis, left shoulder; G62.9 Polyneuropathy, unspecified; L60.0 Ingrowing nail; B35.3 Tinea pedis; I73.9 Peripheral vascular disease, unspecified; L60.3 Nail dystrophy; E53.8 Deficiency of other specified B group vitamins; M21.062 Valgus deformity, not elsewhere classified, left knee; M21.061 Valgus deformity, not elsewhere classified, right knee; T50.4X5A Adverse effect of drugs affecting uric acid metabolism, initial encounter; Y92.230 Patient room in hospital as the place of occurrence of the external cause; K59.00 Constipation, unspecified; Z79.899 Other long term (current) drug therapy; Z79.82 Long term (current) use of aspirin; Z82.49 Family history of ischemic heart disease and other diseases of the circulatory system; Z91.14 Patient's other noncompliance with medication regimen; Z68.29 Body mass index [BMI] 29.0-29.9, adult
CPT/HCPCS: 20611; 36415; 71045; 73090; 73560; 80048; 80053; 80061; 80202; 82040; 82330; 82550; 82553; 82607; 82746; 83540; 83550; 83605; 83735; 83970; 84100; 84132; 84145; 84439; 84443; 84484; 85014; 85018; 85025; 85027; 86140; 86705; 86706; 86709; 86803; 86850; 86900; 86920; 87340; 87426; 89060; 93005; 93306; 93923; 93970; 97110; 97116; 97162; 97164; 97166; 97530; 99285; C1893; C9113; C9803; J0456; J0692; J0696; J0885; J1030; J1650; J2270; J2930; J3370; J3490; J7040; J7060; J7512; J8540; P9016; U0003; U0005

== ENCOUNTER 2022-09-01 10:47 | Inpatient (IN) | payer MEDICARE, MEDICAID ==
[~2022-09-01] VITALS: Ht 180.3 cm; Wt 60.8 kg
[2022-09-01 11:38] LABS: BASOPHILS % 0.7 % (0.0-2.0); EOSINOPHILS % 0.8 % (0.0-5.0); HEMATOCRIT. 39.2 % (42.0-52.0); HEMOGLOBIN. 12.9 g/dL (14.0-18.0); LYMPHOCYTES % 9.6 % (20.0-50.0); MEAN CORPUSCULAR HEMOGLOBIN 28.9 pg (28.0-32.0); MEAN CORPUSCULAR VOLUME 87.7 fL (80.0-94.0); MEAN PLATELET VOLUME 8.1 fl (7.4-10.4); MONOCYTES % 7.6 % (2.0-8.0); NEUTROPHILS % 81.3 % (40.0-76.0); PLATELET 241 x1000/uL (130-400); RED BLOOD CELL COUNT 4.47 mill/uL (4.7-6.1); RED CELL DISTRIBUTION WIDTH 15.8 % (11.6-14.6)
[2022-09-01 11:44] LABS: CHLORIDE 88 mEq/L (98-107)
[2022-09-01 11:45] LABS: INR 1.1; PROTHROMBIN TIME 11.9 sec (9.6-11.0)
[2022-09-01] MEDS ORDERED: FUROSEMIDE 100MG/10ML VIAL IV STA (11:48)
[2022-09-01 11:59] VITALS: PULSE 78; RESP 18; O2SAT 96
[2022-09-01] MEDS ORDERED: CALCIUM CHLORIDE 1GM/10ML SYR IV ONE (12:00)
[2022-09-01] MEDS ORDERED: DEXTROSE 50% WATER 50ML SYRINGE IV ONE (12:00)
[2022-09-01] MEDS ORDERED: ALBUTEROL (0.083%) 2.5MG/3ML NEB HHN ONE (12:00)
[2022-09-01] MEDS ORDERED: INSULIN REGULAR (HUMULIN R) 300UNITS/3ML VIAL IV ONE (12:00)
[2022-09-01] MEDS ORDERED: SODIUM BICARBONATE 8.4% 1 MEQ/ML 50ML SYR IV ONE (12:00)
[2022-09-01] MEDS ORDERED: DEXTROSE 50% WATER 50ML SYRINGE IV SCH (13:30)
[2022-09-01] MEDS ORDERED: INSULIN REGULAR (HUMULIN R) 300UNITS/3ML VIAL IV SCH (13:30)
[2022-09-01] MEDS ORDERED: SODIUM BICARBONATE 8.4% 1 MEQ/ML 50ML SYR IV SCH (13:30)
[2022-09-01] MEDS ORDERED: ALTEPLASE 2MG/VIAL ITC NR (15:00)
[2022-09-01] MEDS ORDERED: GUAIFENESIN 200MG/10ML SUGAR FREE UDC PO PRN (15:30)
[2022-09-01] MEDS ORDERED: NITROGLYCERIN 0.4MG TABLET SL SL PRN (15:30)
[2022-09-01] MEDS ORDERED: DOCUSATE SODIUM 100MG CAPSULE PO PRN (15:30)
[2022-09-01] MEDS ORDERED: ENOXAPARIN 40MG/0.4ML SYR SUBCUT SCH (15:30)
[2022-09-01] MEDS ORDERED: MAGNESIUM/ALUMINUM HYDROXIDE/SIMETHICONE 30ML UDC PO PRN (15:30)
[2022-09-01] MEDS ORDERED: IPRATROPIUM/ALBUTEROL 0.5-3(2.5)MG/3ML NEB NEB PRN (15:30)
[2022-09-01] MEDS ORDERED: CLONIDINE 0.1MG TABLET PO PRN (15:30)
[2022-09-01] MEDS ORDERED: ACETAMINOPHEN 325MG TABLET PO PRN ×2 (15:30)
[2022-09-01] MEDS ORDERED: ONDANSETRON HCL 4MG/2ML INJ IV PRN (15:30)
[2022-09-01] MEDS ORDERED: ENOXAPARIN 30MG/0.3ML SYR SUBCUT SCH (16:00)
[2022-09-01 16:31] LABS: T4 FREE 0.98 ng/dL (0.76-1.46)
[2022-09-01 16:55] LABS: FOLIC ACID (FOLATE) SERUM 7.7 ng/mL (>5.38); HEPATITIS B SURFACE ANTIGEN NEGATIVE
[2022-09-01] MEDS: SEVELAMER CARBONATE 800 MG TABLET PO SCH (17:00)
[2022-09-01] MEDS ORDERED: SODIUM POLYSTYRENE SULFONATE 15 G/60 ML BOT PO NR (19:00)
[2022-09-01 20:30] VITALS: BP 94/61; PULSE 110; TEMP 97.7
[2022-09-01] MEDS: FAMOTIDINE 20MG TABLET PO SCH ×2 (21:56→22:00)
[2022-09-01 23:56] LABS: CREATINE KINASE 87 IU/L (39-308); CREATINE KINASE MB FRACTION < 1.0 ng/mL (0.5-3.6)
[2022-09-02] VITALS (11 sets, daily range): BP systolic 122–134; BP diastolic 65–77; PULSE 70–83; RESP 16–19; TEMP 97.6–98.4
[2022-09-02] MEDS: SEVELAMER CARBONATE 800 MG TABLET PO SCH (07:20)
== END 2022-09-02 18:00 | disposition left against medical advice (07) | DRG 698 ==
LOC: ER 10:47 → 3WST 12:54
PROVIDERS: ADMIT Internal Medicine; ATTEND Internal Medicine
PROC: 5A1D70Z Performance of Urinary Filtration, Intermittent, Less than 6 Hours Per Day (ICD-10-PCS; principal; 2022-09-01)
PROC: 3E03317 Introduction of Other Thrombolytic into Peripheral Vein, Percutaneous Approach (ICD-10-PCS; 2022-09-01)
DX: T82.41XA Breakdown (mechanical) of vascular dialysis catheter, initial encounter (principal); I50.33 Acute on chronic diastolic (congestive) heart failure; N18.6 End stage renal disease; E44.1 Mild protein-calorie malnutrition; I13.2 Hypertensive heart and chronic kidney disease with heart failure and with stage 5 chronic kidney disease, or end stage renal disease; Z68.1 Body mass index [BMI] 19.9 or less, adult; N12 Tubulo-interstitial nephritis, not specified as acute or chronic; D63.8 Anemia in other chronic diseases classified elsewhere; G89.4 Chronic pain syndrome; N25.0 Renal osteodystrophy; F41.9 Anxiety disorder, unspecified; E87.5 Hyperkalemia; E21.1 Secondary hyperparathyroidism, not elsewhere classified; Z20.822 Contact with and (suspected) exposure to COVID-19; Y83.8 Other surgical procedures as the cause of abnormal reaction of the patient, or of later complication, without mention of misadventure at the time of the procedure; Y71.2 Prosthetic and other implants, materials and accessory cardiovascular devices associated with adverse incidents; M1A.9XX1 Chronic gout, unspecified, with tophus (tophi); K21.9 Gastro-esophageal reflux disease without esophagitis; E21.3 Hyperparathyroidism, unspecified; N13.9 Obstructive and reflux uropathy, unspecified; Z99.2 Dependence on renal dialysis; Z79.899 Other long term (current) drug therapy; Y92.89 Other specified places as the place of occurrence of the external cause; Z91.199 Patient's noncompliance with other medical treatment and regimen due to unspecified reason
CPT/HCPCS: 36415; 80053; 80061; 82550; 82553; 82607; 82746; 83036; 83540; 83550; 84439; 84443; 84484; 85025; 86705; 86709; 86803; 87077; 87186; 87340; 87426; 90935; 93970; 94640; 99285; J1650; J1815; J1940; J2997; J3490

== ENCOUNTER 2022-09-16 10:13 | Inpatient (IN) | payer MEDICARE, MEDICAID ==
[~2022-09-16] VITALS: Ht 167.6 cm; Wt 68.0 kg
[2022-09-16 10:22] VITALS: O2SAT 98
[2022-09-16 11:43] LABS: BASOPHILS % 0.8 % (0.0-2.0); EOSINOPHILS % 1.4 % (0.0-5.0); HEMOGLOBIN. 12.7 g/dL (14.0-18.0); LYMPHOCYTES % 19.6 % (20.0-50.0); MEAN CORPUSCULAR HEMOGLOBIN 28.3 pg (28.0-32.0); MEAN CORPUSCULAR VOLUME 87.1 fL (80.0-94.0); MEAN PLATELET VOLUME 7.7 fl (7.4-10.4); MONOCYTES % 9.4 % (2.0-8.0); NEUTROPHILS % 68.8 % (40.0-76.0); PLATELET 313 x1000/uL (130-400); RED BLOOD CELL COUNT 4.48 mill/uL (4.7-6.1); RED CELL DISTRIBUTION WIDTH 16.5 % (11.6-14.6)
[2022-09-16 11:51] LABS: CHLORIDE 94 mEq/L (98-107)
[2022-09-16] MEDS ORDERED: CALCIUM CHLORIDE 1GM/10ML SYR IV NR (13:45)
[2022-09-16] MEDS ORDERED: INSULIN REGULAR (HUMULIN R) 300UNITS/3ML VIAL IV NR (13:45)
[2022-09-16] MEDS ORDERED: ALBUTEROL (0.083%) 2.5MG/3ML NEB HHN NR (13:45)
[2022-09-16] MEDS ORDERED: DEXTROSE 50% WATER 50ML SYRINGE IV NR (13:45)
[2022-09-16] MEDS ORDERED: SODIUM POLYSTYRENE SULFONATE 15 G/60 ML BOT PO NR (13:45)
[2022-09-16 20:00] VITALS: BP 115/74; PULSE 85; RESP 18; TEMP 96.8
[2022-09-16] MEDS ORDERED: ALTEPLASE 2MG/VIAL ITC NR ×2 (20:15→22:30)
[2022-09-16] MEDS ORDERED: DOCUSATE SODIUM 100MG CAPSULE PO PRN (21:15)
[2022-09-16] MEDS ORDERED: DEXTROSE 50% WATER 50ML SYRINGE IV PRN (21:15)
[2022-09-16] MEDS ORDERED: CLONIDINE 0.1MG TABLET PO PRN (21:15)
[2022-09-16] MEDS ORDERED: GUAIFENESIN 200MG/10ML SUGAR FREE UDC PO PRN (21:15)
[2022-09-16] MEDS ORDERED: LORAZEPAM 2MG/ML CPJ IV PRN (21:15)
[2022-09-16] MEDS ORDERED: MAGNESIUM/ALUMINUM HYDROXIDE/SIMETHICONE 30ML UDC PO PRN (21:15)
[2022-09-16] MEDS ORDERED: ACETAMINOPHEN 325MG TABLET PO PRN (21:15)
[2022-09-16] MEDS ORDERED: IPRATROPIUM/ALBUTEROL 0.5-3(2.5)MG/3ML NEB NEB PRN (21:15)
[2022-09-16] MEDS ORDERED: ONDANSETRON HCL 4MG/2ML INJ IV PRN (21:15)
[2022-09-16] MEDS: ENOXAPARIN 30MG/0.3ML SYR SUBCUT SCH (21:31)
[2022-09-16 22:11] LABS: PROTHROMBIN TIME 10.9 sec (9.6-11.0)
[2022-09-16 22:19] LABS: PHOSPHORUS 6.5 mg/dL (2.5-4.9)
[2022-09-16 22:20] LABS: CREATINE KINASE 115 IU/L (39-308)
[2022-09-16 22:30] LABS: FERRITIN 35 ng/mL (22-322)
[2022-09-16 22:39] VITALS: BP 115/74; PULSE 85; RESP 18; TEMP 96.8
[2022-09-16 22:40] LABS: HEPATITIS B SURFACE ANTIGEN NEGATIVE
[2022-09-16 22:45] LABS: VITAMIN B12 SERUM 1004 pg/mL (211-911)
[2022-09-17] VITALS (12 sets, daily range): BP systolic 110–132; BP diastolic 54–81; PULSE 65–100; RESP 16–19; TEMP 96.4–99.9
[2022-09-17] MEDS: BLOOD SUGAR DIAGNOSTIC STRIP TEST SCH ×4 (06:36→21:00)
[2022-09-17 06:57] LABS: BASOPHILS % 0.9 % (0.0-2.0); EOSINOPHILS % 1.8 % (0.0-5.0); HEMATOCRIT. 36.3 % (42.0-52.0); HEMOGLOBIN. 11.9 g/dL (14.0-18.0); LYMPHOCYTES % 14.9 % (20.0-50.0); MEAN CORPUSCULAR HEMOGLOBIN 28.2 pg (28.0-32.0); MEAN PLATELET VOLUME 7.8 fl (7.4-10.4); MONOCYTES % 10.1 % (2.0-8.0); NEUTROPHILS % 72.3 % (40.0-76.0); PLATELET 315 x1000/uL (130-400); RED BLOOD CELL COUNT 4.23 mill/uL (4.7-6.1); RED CELL DISTRIBUTION WIDTH 16.5 % (11.6-14.6)
[2022-09-17] MEDS ORDERED: HEPARIN 1000 UNITS/ML 10ML ONE ×2 (07:19→11:44)
[2022-09-17] MEDS ORDERED: LIDOCAINE HCL 1% 10 MG/ML 10ML VIAL ONE ×4 (07:19→11:44)
[2022-09-17 07:23] LABS: CHLORIDE 92 mEq/L (98-107)
[2022-09-17 07:49] LABS: CREATINE KINASE 106 IU/L (39-308); CREATINE KINASE MB FRACTION < 1.0 ng/mL (0.5-3.6); HDL CHOLESTEROL 43 mg/dL (40-59); LDL CHOLESTEROL 42 mg/dL (5-100); T4 FREE 1.04 ng/dL (0.76-1.46)
[2022-09-17] MEDS: INSULIN LISPRO 100 UNITS/ML SUBCUT SCH ×4 (07:50→21:00)
[2022-09-17] MEDS: PANTOPRAZOLE SODIUM 40 MG/VIAL IV SCH (09:00)
[2022-09-17] MEDS: DOXERCALCIFEROL 2.5 MCG CAPSULE PO SCH (09:00)
[2022-09-17] MEDS: FOLIC ACID/VITAMIN B COMP W-C TABLET PO SCH (09:00)
[2022-09-17] MEDS: CINACALCET HCL 60MG TABLET PO SCH (09:00)
[2022-09-17] MEDS: SEVELAMER CARBONATE 800 MG TABLET PO SCH ×3 (09:15→17:37)
[2022-09-17] MEDS ORDERED: THROMBIN (BOVINE) 5000 UNITS/VIAL TOP ONE ×2 (10:30→10:55)
[2022-09-17] MEDS ORDERED: HEPARIN SODIUM 1,000 UNIT/1ML VIAL IV ONE ×2 (10:30→10:55)
[2022-09-17] MEDS ORDERED: BUPIVACAINE HCL/PF 0.5% (5MG/ML) 10ML ONE ×2 (10:30→10:56)
[2022-09-17] MEDS ORDERED: POLYMYXIN B SULFATE 500000 UNITS/VIAL ONE (10:55)
[2022-09-17] MEDS ORDERED: BACITRACIN 15GM TUBE TOP ONE (11:37)
[2022-09-17] MEDS ORDERED: IOHEXOL-300 50 ML BOTTLE IV ONE (12:28)
[2022-09-17] MEDS ORDERED: VANCOMYCIN 1G PREMIX 200 ML IV SCH (13:00)
[2022-09-17] MEDS ORDERED: VANCOMYCIN 1.25GM PMX (XELLIA) 250 ML IV NR (15:30)
[2022-09-17] MEDS: ACETAMINOPHEN 325MG TABLET PO PRN (17:36)
[2022-09-17] MEDS: ENOXAPARIN 30MG/0.3ML SYR SUBCUT SCH (21:00)
[2022-09-18] MEDS: BLOOD SUGAR DIAGNOSTIC STRIP TEST SCH ×4 (07:20→20:29)
[2022-09-18] MEDS: INSULIN LISPRO 100 UNITS/ML SUBCUT SCH ×4 (07:50→20:28)
[2022-09-18 08:00] VITALS: BP 108/50; PULSE 98; RESP 19; TEMP 97.9
[2022-09-18 08:09] LABS: HEMOGLOBIN 12.6 g/dL (14.0-18.0); MEAN CORPUSCULAR HEMOGLOBIN 28.8 pg (28.0-32.0); MEAN CORPUSCULAR VOLUME 86.6 fL (80.0-94.0); PLATELET 296 x1000/uL (130-400); RED BLOOD CELL COUNT 4.39 mill/uL (4.7-6.1); RED CELL DISTRIBUTION WIDTH 16.6 % (11.6-14.6)
[2022-09-18] MEDS: SEVELAMER CARBONATE 800 MG TABLET PO SCH ×3 (08:58→17:07)
[2022-09-18] MEDS: CINACALCET HCL 60MG TABLET PO SCH (08:59)
[2022-09-18] MEDS: FOLIC ACID/VITAMIN B COMP W-C TABLET PO SCH (08:59)
[2022-09-18] MEDS: PANTOPRAZOLE SODIUM 40 MG/VIAL IV SCH (08:59)
[2022-09-18] MEDS: ACETAMINOPHEN 325MG TABLET PO PRN ×3 (09:03→18:47)
[2022-09-18 09:59] LABS: CHLORIDE 93 mEq/L (98-107)
[2022-09-18 10:07] LABS: PHOSPHORUS 4.7 mg/dL (2.5-4.9)
[2022-09-18 12:00] VITALS: BP 106/58; PULSE 109; RESP 18; TEMP 97.9
[2022-09-18 16:00] VITALS: BP 106/71; PULSE 110; RESP 19; TEMP 98.2
[2022-09-18 20:00] VITALS: BP 117/70; PULSE 96; RESP 18; TEMP 95.9
[2022-09-18] MEDS: ENOXAPARIN 30MG/0.3ML SYR SUBCUT SCH (20:29)
[2022-09-19] VITALS (12 sets, daily range): BP systolic 101–156; BP diastolic 53–85; PULSE 65–116; RESP 16–19; TEMP 95.9–98.2
[2022-09-19] MEDS: BLOOD SUGAR DIAGNOSTIC STRIP TEST SCH ×4 (07:20→21:00)
[2022-09-19 07:43] LABS: HEMATOCRIT 35.4 % (42.0-52.0); HEMOGLOBIN 11.9 g/dL (14.0-18.0); MEAN CORPUSCULAR HEMOGLOBIN 28.9 pg (28.0-32.0); MEAN CORPUSCULAR VOLUME 86.2 fL (80.0-94.0); PLATELET 275 x1000/uL (130-400); RED CELL DISTRIBUTION WIDTH 16.5 % (11.6-14.6)
[2022-09-19] MEDS: INSULIN LISPRO 100 UNITS/ML SUBCUT SCH ×4 (07:50→21:00)
[2022-09-19] MEDS: SEVELAMER CARBONATE 800 MG TABLET PO SCH ×3 (07:50→18:03)
[2022-09-19 08:17] LABS: PHOSPHORUS 5.1 mg/dL (2.5-4.9)
[2022-09-19] MEDS: FOLIC ACID/VITAMIN B COMP W-C TABLET PO SCH (09:00)
[2022-09-19] MEDS: CINACALCET HCL 60MG TABLET PO SCH (09:00)
[2022-09-19] MEDS: PANTOPRAZOLE SODIUM 40 MG/VIAL IV SCH (09:00)
[2022-09-19] MEDS: ENOXAPARIN 30MG/0.3ML SYR SUBCUT SCH (21:00)
[2022-09-19] MEDS: ACETAMINOPHEN 325MG TABLET PO PRN (21:20)
[2022-09-20] VITALS (11 sets, daily range): BP systolic 93–121; BP diastolic 59–82; PULSE 74–112; RESP 18–20; TEMP 97.5–99.1
[2022-09-20 06:10] LABS: BASOPHILS % 0.9 % (0.0-2.0); EOSINOPHILS % 3.1 % (0.0-5.0); HEMATOCRIT. 37.8 % (42.0-52.0); HEMOGLOBIN. 12.5 g/dL (14.0-18.0); LYMPHOCYTES % 26.5 % (20.0-50.0); MEAN CORPUSCULAR HEMOGLOBIN 28.8 pg (28.0-32.0); MEAN CORPUSCULAR VOLUME 86.9 fL (80.0-94.0); MEAN PLATELET VOLUME 7.9 fl (7.4-10.4); MONOCYTES % 11.4 % (2.0-8.0); NEUTROPHILS % 58.1 % (40.0-76.0); PLATELET 269 x1000/uL (130-400); RED BLOOD CELL COUNT 4.35 mill/uL (4.7-6.1); RED CELL DISTRIBUTION WIDTH 16.4 % (11.6-14.6)
[2022-09-20] MEDS: BLOOD SUGAR DIAGNOSTIC STRIP TEST SCH ×4 (07:20→20:56)
[2022-09-20] MEDS: INSULIN LISPRO 100 UNITS/ML SUBCUT SCH ×4 (07:50→20:55)
[2022-09-20] MEDS: SEVELAMER CARBONATE 800 MG TABLET PO SCH ×3 (08:49→18:35)
[2022-09-20] MEDS: CINACALCET HCL 60MG TABLET PO SCH (09:00)
[2022-09-20] MEDS ORDERED: FAMOTIDINE 20MG/2ML VIAL IV SCH (09:00)
[2022-09-20] MEDS: FOLIC ACID/VITAMIN B COMP W-C TABLET PO SCH (09:00)
[2022-09-20] MEDS: DOXERCALCIFEROL 2.5 MCG CAPSULE PO SCH (09:00)
[2022-09-20] MEDS: ACETAMINOPHEN 325MG TABLET PO PRN (13:31)
[2022-09-20] MEDS: ENOXAPARIN 30MG/0.3ML SYR SUBCUT SCH (20:55)
[2022-09-20] MEDS ORDERED: VANCOMYCIN 500MG PREMIX 100 ML IV SCH (21:00)
[2022-09-20] MEDS ORDERED: FAMOTIDINE 20MG TABLET PO SCH (21:00)
[2022-09-21] VITALS (8 sets, daily range): BP systolic 89–125; BP diastolic 51–82; PULSE 74–115; RESP 14–28; TEMP 97.7–98.8
[2022-09-21] MEDS: BLOOD SUGAR DIAGNOSTIC STRIP TEST SCH ×4 (06:55→21:00)
[2022-09-21] MEDS: SEVELAMER CARBONATE 800 MG TABLET PO SCH ×3 (07:50→17:13)
[2022-09-21] MEDS: INSULIN LISPRO 100 UNITS/ML SUBCUT SCH ×4 (07:50→21:00)
[2022-09-21] MEDS ORDERED: LIDOCAINE HCL 1% 10 MG/ML 10ML VIAL ONE (08:11)
[2022-09-21] MEDS ORDERED: FENTANYL CITRATE/PF 50MCG/ML 2ML VIAL IV NR (08:45)
[2022-09-21] MEDS: FOLIC ACID/VITAMIN B COMP W-C TABLET PO SCH (09:00)
[2022-09-21] MEDS: CINACALCET HCL 60MG TABLET PO SCH (09:00)
[2022-09-21 09:16] LABS: BASOPHILS % 0.5 % (0.0-2.0); EOSINOPHILS % 2.8 % (0.0-5.0); HEMATOCRIT. 39.6 % (42.0-52.0); HEMOGLOBIN. 13.1 g/dL (14.0-18.0); LYMPHOCYTES % 24.6 % (20.0-50.0); MEAN CORPUSCULAR HEMOGLOBIN 28.9 pg (28.0-32.0); MEAN CORPUSCULAR VOLUME 87.3 fL (80.0-94.0); MEAN PLATELET VOLUME 7.9 fl (7.4-10.4); MONOCYTES % 11.3 % (2.0-8.0); NEUTROPHILS % 60.8 % (40.0-76.0); PLATELET 290 x1000/uL (130-400); RED BLOOD CELL COUNT 4.54 mill/uL (4.7-6.1); RED CELL DISTRIBUTION WIDTH 16.9 % (11.6-14.6)
[2022-09-21 09:20] LABS: PROTHROMBIN TIME 10.6 sec (9.6-11.0)
[2022-09-21] MEDS: ACETAMINOPHEN 325MG TABLET PO PRN ×2 (11:09→17:13)
[2022-09-21] MEDS: ENOXAPARIN 30MG/0.3ML SYR SUBCUT SCH (21:00)
[2022-09-22] MEDS: BLOOD SUGAR DIAGNOSTIC STRIP TEST SCH ×2 (07:20→12:20)
[2022-09-22] MEDS: INSULIN LISPRO 100 UNITS/ML SUBCUT SCH ×2 (07:50→12:50)
[2022-09-22 08:00] VITALS: BP 123/86; PULSE 104; RESP 20; TEMP 98.1
[2022-09-22] MEDS: ACETAMINOPHEN 325MG TABLET PO PRN (08:40)
[2022-09-22] MEDS: CINACALCET HCL 60MG TABLET PO SCH (08:41)
[2022-09-22] MEDS: FOLIC ACID/VITAMIN B COMP W-C TABLET PO SCH (08:41)
[2022-09-22] MEDS: DOXERCALCIFEROL 2.5 MCG CAPSULE PO SCH (08:41)
[2022-09-22] MEDS: SEVELAMER CARBONATE 800 MG TABLET PO SCH ×2 (08:41→14:20)
[2022-09-22 09:21] LABS: HEMATOCRIT 39.6 % (42.0-52.0); MEAN CORPUSCULAR HEMOGLOBIN 28.2 pg (28.0-32.0); MEAN CORPUSCULAR VOLUME 86.3 fL (80.0-94.0); PLATELET 289 x1000/uL (130-400); RED BLOOD CELL COUNT 4.59 mill/uL (4.7-6.1); RED CELL DISTRIBUTION WIDTH 17.5 % (11.6-14.6)
== END 2022-09-22 14:28 | DRG 673 ==
LOC: ER 10:13 → EDBEDREQ 11:37 → EDBEDREQTM 11:37 → 6EST 17:55
PROVIDERS: ADMIT Hospitalist; ATTEND Hospitalist
PROC: 05PY03Z Removal of Infusion Device from Upper Vein, Open Approach (ICD-10-PCS; 2022-09-17)
PROC: 02H633Z Insertion of Infusion Device into Right Atrium, Percutaneous Approach (ICD-10-PCS; 2022-09-17)
PROC: B5181ZA Fluoroscopy of Superior Vena Cava using Low Osmolar Contrast, Guidance (ICD-10-PCS; 2022-09-17)
PROC: B548ZZA Ultrasonography of Superior Vena Cava, Guidance (ICD-10-PCS; 2022-09-17)
PROC: 5A1D70Z Performance of Urinary Filtration, Intermittent, Less than 6 Hours Per Day (ICD-10-PCS; 2022-09-17)
PROC: 5A1D70Z Performance of Urinary Filtration, Intermittent, Less than 6 Hours Per Day (ICD-10-PCS; 2022-09-19)
PROC: 5A1D70Z Performance of Urinary Filtration, Intermittent, Less than 6 Hours Per Day (ICD-10-PCS; 2022-09-20)
PROC: 0JH63XZ Insertion of Tunneled Vascular Access Device into Chest Subcutaneous Tissue and Fascia, Percutaneous Approach (ICD-10-PCS; principal; 2022-09-21)
PROC: 02HV33Z Insertion of Infusion Device into Superior Vena Cava, Percutaneous Approach (ICD-10-PCS; 2022-09-21)
PROC: B5181ZA Fluoroscopy of Superior Vena Cava using Low Osmolar Contrast, Guidance (ICD-10-PCS; 2022-09-21)
PROC: B548ZZA Ultrasonography of Superior Vena Cava, Guidance (ICD-10-PCS; 2022-09-21)
PROC: 02PAX3Z Removal of Infusion Device from Heart, External Approach (ICD-10-PCS; 2022-09-21)
DX: T82.41XA Breakdown (mechanical) of vascular dialysis catheter, initial encounter (principal); N18.6 End stage renal disease; E87.1 Hypo-osmolality and hyponatremia; N25.81 Secondary hyperparathyroidism of renal origin; I13.2 Hypertensive heart and chronic kidney disease with heart failure and with stage 5 chronic kidney disease, or end stage renal disease; N12 Tubulo-interstitial nephritis, not specified as acute or chronic; D63.1 Anemia in chronic kidney disease; E87.5 Hyperkalemia; Z20.822 Contact with and (suspected) exposure to COVID-19; M11.20 Other chondrocalcinosis, unspecified site; N25.0 Renal osteodystrophy; G89.4 Chronic pain syndrome; I50.9 Heart failure, unspecified; K21.9 Gastro-esophageal reflux disease without esophagitis; F41.9 Anxiety disorder, unspecified; M10.9 Gout, unspecified; M19.90 Unspecified osteoarthritis, unspecified site; Z99.2 Dependence on renal dialysis; Z91.199 Patient's noncompliance with other medical treatment and regimen due to unspecified reason; Y71.2 Prosthetic and other implants, materials and accessory cardiovascular devices associated with adverse incidents; Y92.89 Other specified places as the place of occurrence of the external cause
CPT/HCPCS: 36415; 36556; 36558; 36589; 71045; 76937; 77001; 80048; 80053; 80061; 80202; 82550; 82553; 82607; 82728; 82746; 83036; 83540; 83550; 83735; 84100; 84132; 84439; 84443; 84481; 84484; 85025; 85027; 86705; 86709; 86803; 87340; 87426; 90935; 92610; 93005; 93970; 97161; 99152; 99153; 99285; C1750; C1752; C1769; C1887; C9113; J1642; J1644; J1650; J1815; J2997; J3010; J3370; J3490; L8514; Q9967; G0500